=== PATIENT | female | born 1945 | race Caucasian/White ===

== ENCOUNTER 2021-12-29 13:01 | Outpatient (CLI) | payer MEDICARE, MEDICAID | END 2021-12-29 13:02 | disposition home or self-care (01) | LOC: BICRAD 13:01 | PROVIDERS: ATTEND Family Medicine | DX: M41.34 Thoracogenic scoliosis, thoracic region (principal); M47.812 Spondylosis without myelopathy or radiculopathy, cervical region; M47.814 Spondylosis without myelopathy or radiculopathy, thoracic region | CPT/HCPCS: 72040; 72072 ==

== ENCOUNTER 2022-03-02 13:36 | Emergency (ER) | payer MEDICARE, MEDICAID | END 2022-03-02 14:38 | disposition home or self-care (01) | LOC: ERS 13:36 | DX: R21 Rash and other nonspecific skin eruption (principal) | CPT/HCPCS: 99282 ==

== ENCOUNTER 2022-03-27 21:00 | Inpatient (IN) | payer OTHER ==
[2022-03-27 22:22] LABS: #Basophils 0.1 thou/uL (0.0-0.2); #Eosinphils 0.1 thou/uL (0.0-0.7); #Lymphocytes 2.3 thou/uL (1.20-3.40); #Monocytes 0.6 thou/uL (0.11-0.59); #Neutrophils 3.8 thou/uL (1.40-6.50); %Basophils 1.2 % (0.0-1.0); %Eosinophils 1.1 % (0.0-10.0); %Lymphocytes 33.3 % (21.0-51.0); %Monocytes 8.7 % (0.0-10.0); %Neutrophils 55.7 % (42.0-75.0); Hemoglobin 10.9 g/dL (12.0-16.0); Mean Corpuscular HGB CONC 31.2 g/dL (32.0-36.0); Mean Corpuscular Hemoglobin 26.9 pg (27.0-31.0); Mean Corpuscular Volume 86.3 fL (78.0-98.0); Mean Platelet Volume 9.5 fL (7.4-10.4); Platelet Count 248 thou/uL (130-400); RBC Distribution Width 13.4 % (11.5-14.5); Red Blood Cell (RBC) Count 4.06 mill/uL (4.20-5.40); White Blood Cell (WBC) Count 6.8 thou/uL (4.8-10.8)
[2022-03-27 22:53] LABS: ALT (SGPT) 66 U/L (8-55); AST (SGOT) 73 U/L (5-34); Albumin 3.3 g/dL (3.4-4.8); Alkaline Phosphatase 173 U/L (40-110); Anion Gap 14 mmol/L (10-20); BUN (Urea Nitrogen) 15 mg/dL (9.8-20.1); Bilirubin, Total 0.3 mg/dL (0.2-1.2); Calc. Creatinine Clearance 0 mL/min (70-130); Calcium 8.4 mg/dL (7.8-10.44); Carbon Dioxide 26 mmol/L (23-31); Chloride 104 mmol/L (98-107); Estimated GFR 57; Globulin 3.1 g/dL (2.4-3.5); Glucose 173 mg/dL (83-110); Potassium 4.6 mmol/L (3.5-5.1); Protein, Total 6.4 g/dL (5.8-8.1); Sodium 139 mmol/L (136-145)
[2022-03-27 23:15] LABS: CKMB 3.5 ng/mL (0-6.6)
[2022-03-27] MEDS ORDERED: Nitroglycerin 2% Ointment 1 INCH/1 GM Packet ONE (23:25)
[2022-03-27] MEDS ORDERED: Furosemide 20 MG/2 ML VIAL ONE (23:25)
[2022-03-27] MEDS ORDERED: Furosemide 40 MG/4 ML VIAL ONE (23:25)
[2022-03-27] MEDS ORDERED: Aspirin Chewable 81 MG TAB ONE (23:25)
[2022-03-27] MEDS ORDERED: Dextrose 50% Abboject 50 ML SYRINGE SLOW IVP PRN (23:51)
[2022-03-27] MEDS ORDERED: Acetaminophen 325 MG TAB PO PRN (23:51)
[2022-03-27] MEDS ORDERED: Dextrose 5% in Water 1,000 ML IV PRN (23:51)
[2022-03-28] MEDS ORDERED: Melatonin 3 MG TAB PO PRN (00:24)
[2022-03-28] MEDS ORDERED: Docusate Sodium 100 MG/10 ML UDCUP PO PRN (00:25)
[2022-03-28] MEDS ORDERED: guaiFENesin ER 600 MG TAB PO PRN (00:32)
[2022-03-28 00:36] LABS: Iron 25 ug/dL (50-170); Iron Binding Capacity, Total 354 mcg/dL (265-497)
[2022-03-28 01:04] LABS: SARS-CoV-2 NAA Rapid Test Not Detected (NotDetected)
[2022-03-28 04:15] LABS: #Basophils 0.1 thou/uL (0.0-0.2); #Eosinphils 0.1 thou/uL (0.0-0.7); #Lymphocytes 2.5 thou/uL (1.20-3.40); #Monocytes 0.7 thou/uL (0.11-0.59); #Neutrophils 3.5 thou/uL (1.40-6.50); %Basophils 0.9 % (0.0-1.0); %Lymphocytes 36.7 % (21.0-51.0); %Neutrophils 51.3 % (42.0-75.0); Hemoglobin 11.4 g/dL (12.0-16.0); Mean Corpuscular HGB CONC 32.6 g/dL (32.0-36.0); Mean Corpuscular Hemoglobin 28.1 pg (27.0-31.0); Mean Corpuscular Volume 86.2 fL (78.0-98.0); Mean Platelet Volume 9.5 fL (7.4-10.4); Platelet Count 250 thou/uL (130-400); RBC Distribution Width 13.6 % (11.5-14.5); Red Blood Cell (RBC) Count 4.08 mill/uL (4.20-5.40); White Blood Cell (WBC) Count 6.8 thou/uL (4.8-10.8)
[2022-03-28 04:43] LABS: ALT (SGPT) 63 U/L (8-55); AST (SGOT) 55 U/L (5-34); Albumin 3.3 g/dL (3.4-4.8); Alkaline Phosphatase 164 U/L (40-110); Anion Gap 14 mmol/L (10-20); BUN (Urea Nitrogen) 15 mg/dL (9.8-20.1); Bilirubin, Total 0.2 mg/dL (0.2-1.2); Calc. Creatinine Clearance 0 mL/min (70-130); Calcium 8.7 mg/dL (7.8-10.44); Carbon Dioxide 27 mmol/L (23-31); Chloride 102 mmol/L (98-107); Estimated GFR 61; Globulin 3.2 g/dL (2.4-3.5); Glucose 161 mg/dL (83-110); Potassium 3.9 mmol/L (3.5-5.1); Protein, Total 6.5 g/dL (5.8-8.1); Sodium 139 mmol/L (136-145)
[2022-03-28 04:47] LABS: Troponin I 0.074 ng/mL (< 0.028)
[2022-03-28] MEDS ORDERED: Insulin Glargine 30 UNITS/0.3 ML VIAL SC SCH ×2 (09:00→21:00)
[2022-03-28] MEDS: metFORMIN 500 MG TAB PO SCH ×2 (09:37→17:52)
[2022-03-28] MEDS: Iron Polysaccharides Complex 150 MG CAP PO SCH (09:37)
[2022-03-28] MEDS ORDERED: Enoxaparin Sodium 40 MG/0.4 ML SYRINGE ONE (09:50)
[2022-03-28] MEDS ORDERED: Aspirin 81 mg Enteric Coated Tablet ONE (09:50)
[2022-03-28 10:17] LABS: Hemoglobin A1c 10.8 % (4.0-6.0)
[2022-03-28] MEDS: Losartan 25 MG TAB PO SCH (10:48)
[2022-03-28] MEDS: Enoxaparin Sodium 40 MG/0.4 ML SYRINGE SC SCH (10:48)
[2022-03-28] MEDS: Loratadine 10 MG TAB PO SCH (10:48)
[2022-03-28] MEDS: Aspirin 81 mg Enteric Coated Tablet PO SCH (10:48)
[2022-03-28] MEDS: Multivitamin W/ Minerals 1 TAB PO SCH (10:48)
[2022-03-28 14:31] VITALS: BMI 20.8
[2022-03-28] MEDS: HumaLOG 300 UNITS/3 ML VIAL SC PRN (17:52)
[2022-03-28] MEDS: Levothyroxine Sodium 25 MCG TAB PO SCH (20:07)
[2022-03-28] MEDS ORDERED: Potassium Chloride 20 MEQ TAB PO SCH (20:30)
[2022-03-28] MEDS: Atorvastatin Calcium 40 MG TAB PO SCH (21:46)
[2022-03-29 05:03] LABS: Anion Gap 13 mmol/L (10-20); BUN (Urea Nitrogen) 16 mg/dL (9.8-20.1); Calc. Creatinine Clearance 40 mL/min (70-130); Calcium 8.5 mg/dL (7.8-10.44); Carbon Dioxide 27 mmol/L (23-31); Chloride 104 mmol/L (98-107); Estimated GFR 62; Glucose 92 mg/dL (83-110); Magnesium 1.6 mg/dL (1.6-2.6); Potassium 4.1 mmol/L (3.5-5.1); Sodium 140 mmol/L (136-145)
[2022-03-29] MEDS: Furosemide 40 MG/4 ML VIAL SLOW IVP SCH ×2 (06:13→13:46)
[2022-03-29] MEDS: Levothyroxine Sodium 25 MCG TAB PO SCH (06:13)
[2022-03-29] MEDS ORDERED: Insulin Glargine 30 UNITS/0.3 ML VIAL SC SCH ×2 (09:00→21:30)
[2022-03-29] MEDS ORDERED: Furosemide 20 MG/2 ML VIAL SLOW IVP SCH (09:00)
[2022-03-29] MEDS: Iron Polysaccharides Complex 150 MG CAP PO SCH (09:32)
[2022-03-29] MEDS: Empagliflozin 10 MG TAB PO SCH (09:33)
[2022-03-29] MEDS: Loratadine 10 MG TAB PO SCH (09:33)
[2022-03-29] MEDS: Multivitamin W/ Minerals 1 TAB PO SCH (09:33)
[2022-03-29] MEDS: Aspirin 81 mg Enteric Coated Tablet PO SCH (09:33)
[2022-03-29] MEDS: Enoxaparin Sodium 40 MG/0.4 ML SYRINGE SC SCH (09:33)
[2022-03-29] MEDS: Losartan 25 MG TAB PO SCH (09:33)
[2022-03-29] MEDS: HumaLOG 300 UNITS/3 ML VIAL SC PRN ×2 (11:38→21:59)
[2022-03-29] MEDS ORDERED: Magnesium 2 GM/50 ML(in water) 2 GM in Premix Bag 1 BAG IVPB SCH (18:00)
[2022-03-29] MEDS: Atorvastatin Calcium 40 MG TAB PO SCH (21:59)
[2022-03-30] MEDS: Furosemide 40 MG/4 ML VIAL SLOW IVP SCH ×5 (06:01→21:32)
[2022-03-30] MEDS: Levothyroxine Sodium 25 MCG TAB PO SCH (06:01)
[2022-03-30] MEDS: HumaLOG 300 UNITS/3 ML VIAL SC PRN ×3 (06:02→21:35)
[2022-03-30 08:00] LABS: ALT (SGPT) 36 U/L (8-55); AST (SGOT) 24 U/L (5-34); Albumin 3.3 g/dL (3.4-4.8); Alkaline Phosphatase 142 U/L (40-110); Anion Gap 16 mmol/L (10-20); BUN (Urea Nitrogen) 21 mg/dL (9.8-20.1); Bilirubin, Total 0.2 mg/dL (0.2-1.2); Calc. Creatinine Clearance 33 mL/min (70-130); Calcium 9.3 mg/dL (7.8-10.44); Carbon Dioxide 28 mmol/L (23-31); Chloride 99 mmol/L (98-107); Estimated GFR 47; Globulin 3.3 g/dL (2.4-3.5); Glucose 157 mg/dL (83-110); Magnesium 2.4 mg/dL (1.6-2.6); Potassium 3.6 mmol/L (3.5-5.1); Protein, Total 6.6 g/dL (5.8-8.1); Sodium 139 mmol/L (136-145)
[2022-03-30] MEDS ORDERED: Insulin Glargine 30 UNITS/0.3 ML VIAL SC SCH ×2 (09:00)
[2022-03-30] MEDS: Enoxaparin Sodium 40 MG/0.4 ML SYRINGE SC SCH (09:23)
[2022-03-30] MEDS: Iron Polysaccharides Complex 150 MG CAP PO SCH (09:23)
[2022-03-30] MEDS: Losartan 25 MG TAB PO SCH (09:23)
[2022-03-30] MEDS: Aspirin 81 mg Enteric Coated Tablet PO SCH (09:23)
[2022-03-30] MEDS: Empagliflozin 10 MG TAB PO SCH (09:23)
[2022-03-30] MEDS: Multivitamin W/ Minerals 1 TAB PO SCH (09:23)
[2022-03-30] MEDS: Loratadine 10 MG TAB PO SCH (09:23)
[2022-03-30] MEDS ORDERED: Communication Order-Pharmacy FS PRN (10:15)
[2022-03-30] MEDS ORDERED: Potassium Chloride 20 MEQ TAB PO SCH (12:00)
[2022-03-30] MEDS: Atorvastatin Calcium 40 MG TAB PO SCH (21:27)
[2022-03-31 04:51] LABS: ALT (SGPT) 34 U/L (8-55); AST (SGOT) 24 U/L (5-34); Albumin 3.6 g/dL (3.4-4.8); Alkaline Phosphatase 152 U/L (40-110); Anion Gap 15 mmol/L (10-20); BUN (Urea Nitrogen) 24 mg/dL (9.8-20.1); Bilirubin, Total Less than 0.2 mg/dL (0.2-1.2); Calc. Creatinine Clearance 29 mL/min (70-130); Calcium 9.5 mg/dL (7.8-10.44); Carbon Dioxide 33 mmol/L (23-31); Chloride 98 mmol/L (98-107); Estimated GFR 40; Globulin 3.6 g/dL (2.4-3.5); Glucose 177 mg/dL (83-110); Magnesium 2.2 mg/dL (1.6-2.6); Potassium 4.1 mmol/L (3.5-5.1); Protein, Total 7.2 g/dL (5.8-8.1); Sodium 142 mmol/L (136-145)
[2022-03-31] MEDS: Levothyroxine Sodium 25 MCG TAB PO SCH (05:48)
[2022-03-31] MEDS: Aspirin 81 mg Enteric Coated Tablet PO SCH (05:48)
[2022-03-31] MEDS: Losartan 25 MG TAB PO SCH (05:48)
[2022-03-31] MEDS: Loratadine 10 MG TAB PO SCH (05:49)
[2022-03-31] MEDS ORDERED: Sodium Chloride 0.9% 1,000 ML IV SCH (06:00)
[2022-03-31] MEDS ORDERED: Lidocaine 1% PF 5 ML VIAL ONE (06:21)
[2022-03-31] MEDS ORDERED: Lidocaine 1% MPF 2 ML VIAL ONE ×2 (06:36→06:37)
[2022-03-31] MEDS ORDERED: Midazolam HCl 2 mg/2 ml Vial ONE (07:25)
[2022-03-31] MEDS ORDERED: Fentanyl 100 MCG/2 ML VIAL ONE (07:25)
[2022-03-31] MEDS ORDERED: Iopamidol 370 76% 100 ML VIAL ONE (08:29)
[2022-03-31] MEDS ORDERED: Nitroglycerin 0.4 MG TAB (25 Tab Bottle) SL PRN (08:34)
[2022-03-31] MEDS ORDERED: Acetaminophen/Codeine 30-300mg Tablet PO PRN (08:34)
[2022-03-31] MEDS ORDERED: Sodium Chloride 0.9% 200 ML IV PRN (08:34)
[2022-03-31] MEDS ORDERED: Insulin Glargine 30 UNITS/0.3 ML VIAL SC SCH ×2 (09:00)
[2022-03-31] MEDS ORDERED: Lantus 1000 UNITS/10 ML VIAL SC SCH (09:00)
[2022-03-31] MEDS: Empagliflozin 10 MG TAB PO SCH (10:37)
[2022-03-31] MEDS: Multivitamin W/ Minerals 1 TAB PO SCH (10:38)
[2022-03-31] MEDS: Iron Polysaccharides Complex 150 MG CAP PO SCH (10:38)
[2022-03-31] MEDS ORDERED: Amiodarone 450 MG in Dextrose 5% in Water 250 ML IVPB SCH (11:30)
[2022-03-31] MEDS ORDERED: Metoprolol Tartrate 5 MG/5 ML VIAL IVP SCH ×2 (11:30)
[2022-03-31] MEDS: Amiodarone 200 MG TAB PO SCH ×2 (13:18→20:52)
[2022-03-31] MEDS: Carvedilol 3.125 MG TAB PO SCH (17:13)
[2022-03-31] MEDS: HumaLOG 300 UNITS/3 ML VIAL SC PRN ×2 (17:14→20:53)
[2022-03-31] MEDS: Atorvastatin Calcium 40 MG TAB PO SCH (20:51)
[2022-04-01 06:02] LABS: ALT (SGPT) 24 U/L (8-55); AST (SGOT) 19 U/L (5-34); Albumin 3.3 g/dL (3.4-4.8); Alkaline Phosphatase 116 U/L (40-110); Anion Gap 11 mmol/L (10-20); BUN (Urea Nitrogen) 23 mg/dL (9.8-20.1); Bilirubin, Total 0.2 mg/dL (0.2-1.2); Calc. Creatinine Clearance 36 mL/min (70-130); Calcium 8.9 mg/dL (7.8-10.44); Carbon Dioxide 32 mmol/L (23-31); Chloride 102 mmol/L (98-107); Estimated GFR 53; Glucose 94 mg/dL (83-110); Potassium 3.7 mmol/L (3.5-5.1); Protein, Total 6.3 g/dL (5.8-8.1); Sodium 141 mmol/L (136-145)
[2022-04-01] MEDS: Amiodarone 200 MG TAB PO SCH ×3 (06:14→21:25)
[2022-04-01] MEDS: Levothyroxine Sodium 25 MCG TAB PO SCH (06:14)
[2022-04-01] MEDS ORDERED: Insulin Glargine 30 UNITS/0.3 ML VIAL SC SCH (09:00)
[2022-04-01] MEDS: Losartan 25 MG TAB PO SCH (09:28)
[2022-04-01] MEDS: Multivitamin W/ Minerals 1 TAB PO SCH (09:28)
[2022-04-01] MEDS: Carvedilol 3.125 MG TAB PO SCH ×2 (09:28→16:30)
[2022-04-01] MEDS: Aspirin 81 mg Enteric Coated Tablet PO SCH (09:28)
[2022-04-01] MEDS: Empagliflozin 10 MG TAB PO SCH (09:28)
[2022-04-01] MEDS: Insulin Glargine 30 UNITS/0.3 ML VIAL SC SCH (09:29)
[2022-04-01] MEDS: Enoxaparin Sodium 40 MG/0.4 ML SYRINGE SC SCH (09:29)
[2022-04-01] MEDS: Furosemide 20 MG TAB PO SCH (09:30)
[2022-04-01] MEDS: Iron Polysaccharides Complex 150 MG CAP PO SCH (09:30)
[2022-04-01] MEDS ORDERED: Iron, Sodium Ferric Gluconate 250 MG in Sodium Chloride 0.9% 250 ML 250 ML IVPB SCH (14:37)
[2022-04-01] MEDS: Atorvastatin Calcium 40 MG TAB PO SCH (21:26)
[2022-04-02 04:46] LABS: ALT (SGPT) 23 U/L (8-55); AST (SGOT) 22 U/L (5-34); Albumin 3.2 g/dL (3.4-4.8); Alkaline Phosphatase 111 U/L (40-110); Anion Gap 14 mmol/L (10-20); BUN (Urea Nitrogen) 24 mg/dL (9.8-20.1); Bilirubin, Total 0.3 mg/dL (0.2-1.2); Calc. Creatinine Clearance 37 mL/min (70-130); Calcium 8.6 mg/dL (7.8-10.44); Carbon Dioxide 29 mmol/L (23-31); Chloride 101 mmol/L (98-107); Estimated GFR 53; Glucose 100 mg/dL (83-110); Magnesium 1.9 mg/dL (1.6-2.6); Potassium 3.8 mmol/L (3.5-5.1); Protein, Total 6.2 g/dL (5.8-8.1); Sodium 140 mmol/L (136-145)
[2022-04-02] MEDS: Levothyroxine Sodium 25 MCG TAB PO SCH (06:08)
[2022-04-02] MEDS: Amiodarone 200 MG TAB PO SCH (06:08)
[2022-04-02] MEDS ORDERED: Loratadine 10 MG TAB PO SCH ×2 (07:15)
[2022-04-02] MEDS ORDERED: metFORMIN 500 MG TAB PO SCH (08:00)
[2022-04-02] MEDS: Enoxaparin Sodium 40 MG/0.4 ML SYRINGE SC SCH (08:44)
[2022-04-02] MEDS: Iron Polysaccharides Complex 150 MG CAP PO SCH (08:44)
[2022-04-02] MEDS: Carvedilol 3.125 MG TAB PO SCH (08:44)
[2022-04-02] MEDS: Empagliflozin 10 MG TAB PO SCH (08:45)
[2022-04-02] MEDS: Furosemide 20 MG TAB PO SCH (08:46)
[2022-04-02] MEDS: Aspirin 81 mg Enteric Coated Tablet PO SCH (08:46)
[2022-04-02] MEDS: Losartan 25 MG TAB PO SCH (08:46)
[2022-04-02] MEDS: Multivitamin W/ Minerals 1 TAB PO SCH (08:46)
[2022-04-02] MEDS: Insulin Glargine 30 UNITS/0.3 ML VIAL SC SCH (08:47)
[2022-04-02 12:25] VITALS: BP 133/68; TEMP 98.1
[2022-04-02] MEDS ORDERED: Amiodarone 200 MG TAB PO SCH (21:00)
== END 2022-04-02 14:22 | disposition home or self-care (01) | DRG 286 ==
LOC: ERS 21:00 → ERHOLD 23:23 → 2NO 23:55
PROVIDERS: ADMIT Student in an Organized Health Care Education/Training Program; ATTEND Student in an Organized Health Care Education/Training Program
PROC: B2111ZZ Fluoroscopy of Multiple Coronary Arteries using Low Osmolar Contrast (ICD-10-PCS; principal; 2022-03-31)
PROC: B2151ZZ Fluoroscopy of Left Heart using Low Osmolar Contrast (ICD-10-PCS; 2022-03-31)
DX: I11.0 Hypertensive heart disease with heart failure (principal); J96.01 Acute respiratory failure with hypoxia; I50.23 Acute on chronic systolic (congestive) heart failure; I24.8 Other forms of acute ischemic heart disease; N17.9 Acute kidney failure, unspecified; I48.92 Unspecified atrial flutter; E03.9 Hypothyroidism, unspecified; F41.9 Anxiety disorder, unspecified; E11.65 Type 2 diabetes mellitus with hyperglycemia; R32 Unspecified urinary incontinence; E55.9 Vitamin D deficiency, unspecified; E83.42 Hypomagnesemia; E87.6 Hypokalemia; I25.10 Atherosclerotic heart disease of native coronary artery without angina pectoris; D50.9 Iron deficiency anemia, unspecified; I48.0 Paroxysmal atrial fibrillation; Z20.822 Contact with and (suspected) exposure to COVID-19; Z79.4 Long term (current) use of insulin
CPT/HCPCS: 36415; 36416; 71045; 80048; 80053; 82553; 82728; 83036; 83540; 83550; 83735; 83880; 84443; 84484; 85025; 93005; 93306; 93458; 93798; 94760; 96374; C1769; J1650; J1815; J1940; J2250; J2916; J3010; J3475; J3490; J7050; Q9967; U0002

== ENCOUNTER 2022-07-02 18:39 | Emergency (ER) | payer OTHER ==
[2022-07-02] MEDS ORDERED: Boostrix 0.5 ML (Tdap) VIAL (>/=7 yrs of age) ONE (19:27)
== END 2022-07-02 20:40 | disposition home or self-care (01) ==
LOC: ERS 18:39
DX: S00.81XA Abrasion of other part of head, initial encounter (principal); I10 Essential (primary) hypertension; E03.9 Hypothyroidism, unspecified; E11.9 Type 2 diabetes mellitus without complications; W01.0XXA Fall on same level from slipping, tripping and stumbling without subsequent striking against object, initial encounter; Z79.4 Long term (current) use of insulin
CPT/HCPCS: 70450; 70486; 72125; 72170; 90471; 90715

== ENCOUNTER 2022-07-27 20:47 | Emergency (ER) | payer OTHER ==
[2022-07-27 21:39] LABS: #Lymphocytes 1.9 thou/uL (1.20-3.40); #Monocytes 0.7 thou/uL (0.11-0.59); #Neutrophils 4.8 thou/uL (1.40-6.50); %Basophils 0.3 % (0.0-1.0); %Eosinophils 0.4 % (0.0-10.0); %Lymphocytes 25.3 % (21.0-51.0); %Monocytes 9.4 % (0.0-10.0); %Neutrophils 64.5 % (42.0-75.0); Hemoglobin 13.1 g/dL (12.0-16.0); Mean Corpuscular HGB CONC 31.7 g/dL (32.0-36.0); Mean Corpuscular Hemoglobin 28.8 pg (27.0-31.0); Mean Corpuscular Volume 90.7 fl (78.0-98.0); Mean Platelet Volume 10.6 fL (7.4-10.4); Platelet Count 185 10x3/uL (130-400); RBC Distribution Width 16.9 % (11.5-14.5); Red Blood Cell (RBC) Count 4.55 mill/uL (4.20-5.40); White Blood Cell (WBC) Count 7.4 10x3/uL (4.8-10.8)
[2022-07-27 21:58] LABS: ALT (SGPT) 67 U/L (8-55); AST (SGOT) 58 U/L (5-34); Albumin 3.9 g/dL (3.4-4.8); Alkaline Phosphatase 103 U/L (40-110); Anion Gap 17 mmol/L (10-20); BUN (Urea Nitrogen) 28 mg/dL (9.8-20.1); Bilirubin, Total 0.3 mg/dL (0.2-1.2); Calc. Creatinine Clearance 0 mL/min (70-130); Calcium 9.2 mg/dL (7.8-10.44); Carbon Dioxide 24 mmol/L (23-31); Chloride 103 mmol/L (98-107); Estimated GFR 47; Globulin 3.3 g/dL (2.4-3.5); Glucose 186 mg/dL (83-110); Potassium 4.7 mmol/L (3.5-5.1); Protein, Total 7.2 g/dL (5.8-8.1); Sodium 139 mmol/L (136-145)
[2022-07-28 00:33] LABS: Bilirubin Negative (Negative); Blood, Urine Negative (Negative); Clarity Clear (Clear); Glucose, Urine (Dipstick) Greater than 1000 mg/dL (Negative); Ketone, Urine Negative (Negative); Leukocyte Negative Leu/uL (Negative); Nitrite Negative (Negative); Protein, Urine (Dipstick) Negative (Neg-Trace); Urobilinogen Normal mg/dL (Less than 2)
== END 2022-07-28 00:53 | disposition home or self-care (01) ==
LOC: ERS 20:47
DX: I11.0 Hypertensive heart disease with heart failure (principal); I50.9 Heart failure, unspecified; E11.9 Type 2 diabetes mellitus without complications; E03.9 Hypothyroidism, unspecified; Z79.4 Long term (current) use of insulin; Z79.899 Other long term (current) drug therapy
CPT/HCPCS: 36415; 71045; 80053; 81003; 83880; 84484; 85025; 93005

== ENCOUNTER 2022-07-31 14:46 | Inpatient (IN) | payer OTHER ==
[~2022-07-31 14:46] MED LIST: Iopamidol-370 76% 500 ML 1 ML ONE
[2022-07-31 15:38] LABS: #Lymphocytes 1.5 thou/uL (1.20-3.40); #Monocytes 0.8 thou/uL (0.11-0.59); #Neutrophils 6.5 thou/uL (1.40-6.50); %Basophils 0.1 % (0.0-1.0); %Eosinophils 0.2 % (0.0-10.0); %Lymphocytes 17.3 % (21.0-51.0); %Monocytes 9.5 % (0.0-10.0); %Neutrophils 72.9 % (42.0-75.0); Hemoglobin 13.5 g/dL (12.0-16.0); Mean Corpuscular HGB CONC 31.5 g/dL (32.0-36.0); Mean Corpuscular Hemoglobin 28.6 pg (27.0-31.0); Mean Corpuscular Volume 90.9 fl (78.0-98.0); Mean Platelet Volume 10.8 fL (7.4-10.4); Platelet Count 163 10x3/uL (130-400); RBC Distribution Width 16.6 % (11.5-14.5); White Blood Cell (WBC) Count 8.9 10x3/uL (4.8-10.8)
[2022-07-31 15:58] LABS: ALT (SGPT) 888 U/L (8-55); AST (SGOT) 1746 U/L (5-34); Albumin 4.1 g/dL (3.4-4.8); Alkaline Phosphatase 100 U/L (40-110); Anion Gap 17 mmol/L (10-20); BUN (Urea Nitrogen) 29 mg/dL (9.8-20.1); Bilirubin, Total 0.5 mg/dL (0.2-1.2); Calc. Creatinine Clearance 0 mL/min (70-130); Calcium 8.7 mg/dL (7.8-10.44); Carbon Dioxide 27 mmol/L (23-31); Chloride 97 mmol/L (98-107); Estimated GFR 41; Globulin 3.1 g/dL (2.4-3.5); Glucose 118 mg/dL (83-110); Potassium 3.6 mmol/L (3.5-5.1); Protein, Total 7.2 g/dL (5.8-8.1); Sodium 137 mmol/L (136-145)
[2022-07-31 16:19] LABS: CKMB 1.3 ng/mL (0-6.6)
[2022-07-31 16:48] LABS: Bilirubin Negative (Negative); Blood, Urine Negative (Negative); Clarity Clear (Clear); Glucose, Urine (Dipstick) Greater than 1000 mg/dL (Negative); Ketone, Urine 10 mg/dL (Negative); Leukocyte Negative Leu/uL (Negative); Nitrite Negative (Negative); Protein, Urine (Dipstick) 10 mg/dL (Neg-Trace); Specific Gravity, Urine 1.024 (1.002-1.036); Urobilinogen Normal mg/dL (Less than 2)
[2022-07-31] MEDS ORDERED: Aspirin Chewable 81 MG TAB ONE (16:50)
[2022-07-31 19:50] LABS: Troponin I 0.046 ng/mL (< 0.028)
[2022-07-31] MEDS ORDERED: Calcium Carbonate 500 MG ChewTAB PO PRN (19:52)
[2022-07-31] MEDS ORDERED: Dextrose 5% in Water 1,000 ML IV PRN (20:00)
[2022-07-31] MEDS ORDERED: Dextrose 50% Abboject 50 ML SYRINGE SLOW IVP PRN (20:00)
[2022-07-31] MEDS ORDERED: Diclofenac 1% 100 GM GEL TP PRN (20:15)
[2022-07-31] MEDS ORDERED: Docusate 100 MG CAP PO PRN (20:23)
[2022-07-31] MEDS ORDERED: Insulin Glargine 30 UNITS/0.3 ML VIAL SC SCH (21:00)
[2022-07-31] MEDS: Melatonin 3 MG TAB PO SCH (22:44)
[2022-07-31] MEDS: metFORMIN 500 MG TAB PO SCH (22:44)
[2022-07-31 22:47] LABS: PTT 35.2 sec (22.9-36.1); Prothrombin Time 13.7 sec (12.0-14.7)
[2022-07-31 23:19] LABS: HBCM Index 0.13 S/CO (0-0.79); HBSAg Index 0.29 S/CO (0-0.99); Hep A IgM AB Non-Reactive (NonReactive); Hep A IgM S/CO 0.14 S/CO (0-0.79); Hep B Surf Ag Non-Reactive S/CO (NonReactive); Hep C IgG Ab Non-Reactive (NonReactive); Hep C Index 0.04 S/CO (0-0.79); Hepatitis B Core IgM Abs Non-Reactive (NonReactive)
[2022-08-01 00:19] LABS: Creatinine, Urine 59.51 mg/dL (47-110)
[2022-08-01 01:02] LABS: Hemoglobin A1c 9.7 % (4.0-6.0)
[2022-08-01 01:14] LABS: ALT (SGPT) 1003 U/L (8-55); AST (SGOT) 1829 U/L (5-34); Albumin 3.7 g/dL (3.4-4.8); Alkaline Phosphatase 100 U/L (40-110); Bilirubin, Direct 0.2 mg/dL (0.1-0.3); Bilirubin, Total 0.3 mg/dL (0.2-1.2); Protein, Total 7.1 g/dL (5.8-8.1)
[2022-08-01 05:11] LABS: #Lymphocytes 1.1 thou/uL (1.20-3.40); #Monocytes 0.6 thou/uL (0.11-0.59); #Neutrophils 8.8 thou/uL (1.40-6.50); %Basophils 0.1 % (0.0-1.0); %Eosinophils 0.1 % (0.0-10.0); %Lymphocytes 10.5 % (21.0-51.0); %Monocytes 5.8 % (0.0-10.0); %Neutrophils 83.5 % (42.0-75.0); Hemoglobin 13.9 g/dL (12.0-16.0); Mean Corpuscular HGB CONC 31.5 g/dL (32.0-36.0); Mean Corpuscular Hemoglobin 28.7 pg (27.0-31.0); Mean Corpuscular Volume 91.1 fl (78.0-98.0); Mean Platelet Volume 11.3 fL (7.4-10.4); Platelet Count 157 10x3/uL (130-400); RBC Distribution Width 16.6 % (11.5-14.5); Red Blood Cell (RBC) Count 4.83 mill/uL (4.20-5.40); White Blood Cell (WBC) Count 10.6 10x3/uL (4.8-10.8)
[2022-08-01 05:35] LABS: ALT (SGPT) 1189 U/L (8-55); AST (SGOT) 2196 U/L (5-34); Albumin 3.8 g/dL (3.4-4.8); Alkaline Phosphatase 105 U/L (40-110); Anion Gap 14 mmol/L (10-20); BUN (Urea Nitrogen) 26 mg/dL (9.8-20.1); Bilirubin, Total 0.4 mg/dL (0.2-1.2); Calc. Creatinine Clearance 30 mL/min (70-130); Calcium 8.7 mg/dL (7.8-10.44); Carbon Dioxide 29 mmol/L (23-31); Chloride 99 mmol/L (98-107); Estimated GFR 48; Globulin 3.5 g/dL (2.4-3.5); Glucose 103 mg/dL (83-110); Potassium 3.4 mmol/L (3.5-5.1); Protein, Total 7.3 g/dL (5.8-8.1); Sodium 139 mmol/L (136-145)
[2022-08-01] MEDS: Benzonatate 100 MG CAP PO PRN ×3 (05:49→23:17)
[2022-08-01] MEDS: Levothyroxine Sodium 50 MCG TAB PO SCH (05:49)
[2022-08-01] MEDS ORDERED: Insulin Glargine 30 UNITS/0.3 ML VIAL SC SCH (09:00)
[2022-08-01] MEDS ORDERED: Furosemide 20 MG TAB PO SCH (09:00)
[2022-08-01] MEDS: Losartan 25 MG TAB PO SCH (09:47)
[2022-08-01] MEDS: Multivit, Therapeutic 1 TAB PO SCH (09:47)
[2022-08-01] MEDS: Enoxaparin Sodium 30 MG/0.3 ML SYRINGE SC SCH (09:47)
[2022-08-01] MEDS: metFORMIN 500 MG TAB PO SCH ×2 (09:47→23:17)
[2022-08-01] MEDS: Aspirin Chewable 81 MG TAB PO SCH (09:47)
[2022-08-01] MEDS: Sertraline 100 MG TAB PO SCH (09:47)
[2022-08-01] MEDS: Loratadine 10 MG TAB PO SCH (09:47)
[2022-08-01] MEDS ORDERED: Potassium Chloride 20 MEQ TAB PO SCH (10:00)
[2022-08-01] MEDS: Polyethylene Glycol 3350 17 GM Packet PO SCH (10:34)
[2022-08-01 10:47] LABS: SARS-CoV-2 NAA Rapid Test Not Detected (NotDetected)
[2022-08-01] MEDS ORDERED: Oseltamivir 75 MG CAP PO SCH (12:00)
[2022-08-01] MEDS: Melatonin 3 MG TAB PO SCH (23:16)
[2022-08-02] MEDS: Oseltamivir 6 MG/ML ORAL SUSP PO SCH ×3 (01:56→21:42)
[2022-08-02 04:58] LABS: #Monocytes 0.7 thou/uL (0.11-0.59); #Neutrophils 9.2 thou/uL (1.40-6.50); %Basophils 0.2 % (0.0-1.0); %Lymphocytes 16.6 % (21.0-51.0); %Monocytes 5.8 % (0.0-10.0); %Neutrophils 77.4 % (42.0-75.0); Hemoglobin 12.3 g/dL (12.0-16.0); Mean Corpuscular Hemoglobin 29.2 pg (27.0-31.0); Mean Corpuscular Volume 91.2 fl (78.0-98.0); Mean Platelet Volume 10.9 fL (7.4-10.4); Platelet Count 121 10x3/uL (130-400); RBC Distribution Width 16.6 % (11.5-14.5); White Blood Cell (WBC) Count 11.9 10x3/uL (4.8-10.8)
[2022-08-02 05:03] LABS: INR-International Normal Ratio 1.2; PTT 44.8 sec (22.9-36.1); Prothrombin Time 15.5 sec (12.0-14.7)
[2022-08-02 05:11] LABS: ALT (SGPT) 1807 U/L (8-55); AST (SGOT) 3378 U/L (5-34); Albumin 3.2 g/dL (3.4-4.8); Alkaline Phosphatase 113 U/L (40-110); Anion Gap 15 mmol/L (10-20); BUN (Urea Nitrogen) 31 mg/dL (9.8-20.1); Bilirubin, Total 0.6 mg/dL (0.2-1.2); Calc. Creatinine Clearance 30 mL/min (70-130); Calcium 8.4 mg/dL (7.8-10.44); Carbon Dioxide 25 mmol/L (23-31); Chloride 100 mmol/L (98-107); Estimated GFR 48; Glucose 95 mg/dL (83-110); Potassium 3.4 mmol/L (3.5-5.1); Protein, Total 6.2 g/dL (5.8-8.1); Sodium 137 mmol/L (136-145)
[2022-08-02] MEDS: Levothyroxine Sodium 50 MCG TAB PO SCH (06:31)
[2022-08-02] MEDS: Sertraline 100 MG TAB PO SCH (08:39)
[2022-08-02] MEDS: metFORMIN 500 MG TAB PO SCH ×2 (08:39→21:40)
[2022-08-02] MEDS: Aspirin Chewable 81 MG TAB PO SCH (08:39)
[2022-08-02] MEDS: Loratadine 10 MG TAB PO SCH (08:39)
[2022-08-02] MEDS: Insulin Glargine 30 UNITS/0.3 ML VIAL SC SCH (08:40)
[2022-08-02] MEDS: Losartan 25 MG TAB PO SCH (08:40)
[2022-08-02] MEDS: Enoxaparin Sodium 30 MG/0.3 ML SYRINGE SC SCH (08:40)
[2022-08-02] MEDS: Polyethylene Glycol 3350 17 GM Packet PO SCH (08:41)
[2022-08-02] MEDS: Multivit, Therapeutic 1 TAB PO SCH (08:41)
[2022-08-02] MEDS ORDERED: guaiFENesin 200 MG TAB PO PRN (09:02)
[2022-08-02] MEDS ORDERED: Potassium Chloride 20 MEQ TAB PO SCH (09:15)
[2022-08-02] MEDS ORDERED: Torsemide 10 MG TAB PO SCH (09:15)
[2022-08-02] MEDS ORDERED: Ibuprofen 100 MG/5 ML UDCUP PO SCH (12:00)
[2022-08-02] MEDS ORDERED: Lactated Ringer's 500 ML IV SCH (16:30)
[2022-08-02] MEDS: Benzonatate 100 MG CAP PO PRN (21:39)
[2022-08-02] MEDS: Melatonin 3 MG TAB PO SCH (21:40)
[2022-08-02] MEDS: HumaLOG 300 UNITS/3 ML VIAL SC PRN (21:45)
[2022-08-03 04:50] LABS: INR-International Normal Ratio 1.2; Prothrombin Time 15.3 sec (12.0-14.7)
[2022-08-03 04:51] LABS: PTT 45.3 sec (22.9-36.1)
[2022-08-03 05:07] LABS: #Lymphocytes 1.7 thou/uL (1.20-3.40); #Monocytes 0.5 thou/uL (0.11-0.59); #Neutrophils 8.2 thou/uL (1.40-6.50); %Basophils 0.3 % (0.0-1.0); %Eosinophils 0.1 % (0.0-10.0); %Lymphocytes 15.9 % (21.0-51.0); %Monocytes 4.9 % (0.0-10.0); %Neutrophils 78.8 % (42.0-75.0); Hemoglobin 11.7 g/dL (12.0-16.0); Mean Corpuscular HGB CONC 29.9 g/dL (32.0-36.0); Mean Corpuscular Hemoglobin 27.5 pg (27.0-31.0); Mean Corpuscular Volume 91.8 fl (78.0-98.0); Mean Platelet Volume 12.2 fL (7.4-10.4); Platelet Count 104 10x3/uL (130-400); RBC Distribution Width 16.8 % (11.5-14.5); Red Blood Cell (RBC) Count 4.25 mill/uL (4.20-5.40); White Blood Cell (WBC) Count 10.4 10x3/uL (4.8-10.8)
[2022-08-03] MEDS: Levothyroxine Sodium 50 MCG TAB PO SCH (05:07)
[2022-08-03 05:11] LABS: ALT (SGPT) 1900 U/L (8-55); AST (SGOT) 3197 U/L (5-34); Albumin 3.1 g/dL (3.4-4.8); Alkaline Phosphatase 126 U/L (40-110); Anion Gap 13 mmol/L (10-20); BUN (Urea Nitrogen) 32 mg/dL (9.8-20.1); Calc. Creatinine Clearance 26 mL/min (70-130); Calcium 8.8 mg/dL (7.8-10.44); Carbon Dioxide 30 mmol/L (23-31); Chloride 99 mmol/L (98-107); Estimated GFR 40; Globulin 3.1 g/dL (2.4-3.5); Glucose 132 mg/dL (83-110); Potassium 3.6 mmol/L (3.5-5.1); Protein, Total 6.2 g/dL (5.8-8.1); Sodium 138 mmol/L (136-145)
[2022-08-03] MEDS ORDERED: Torsemide 10 MG TAB PO SCH ×2 (09:00→11:00)
[2022-08-03] MEDS ORDERED: FLU VACC QS2022-23(65YR UP)/PF 240 MCG/0.7 ML SYRINGE IM ONE (09:00)
[2022-08-03] MEDS: Aspirin Chewable 81 MG TAB PO SCH (09:40)
[2022-08-03] MEDS: metFORMIN 500 MG TAB PO SCH (09:40)
[2022-08-03] MEDS: Loratadine 10 MG TAB PO SCH (09:40)
[2022-08-03] MEDS: Multivit, Therapeutic 1 TAB PO SCH (09:40)
[2022-08-03] MEDS: Sertraline 100 MG TAB PO SCH (09:40)
[2022-08-03] MEDS: Insulin Glargine 30 UNITS/0.3 ML VIAL SC SCH (09:41)
[2022-08-03] MEDS: Losartan 25 MG TAB PO SCH (09:41)
[2022-08-03] MEDS: Enoxaparin Sodium 30 MG/0.3 ML SYRINGE SC SCH (09:41)
[2022-08-03] MEDS: Polyethylene Glycol 3350 17 GM Packet PO SCH (09:41)
[2022-08-03] MEDS: Oseltamivir 6 MG/ML ORAL SUSP PO SCH (09:43)
[2022-08-03 13:25] LABS: ANA Symphony (Qualitative) Negative (Negative); ANA Symphony (Quantitative) 0.3 Ratio (< 0.7 Negative); dsDNA IgG Antibody 0.9 IU/mL (<10 Negative)
[2022-08-03] MEDS: HumaLOG 300 UNITS/3 ML VIAL SC PRN (17:08)
[2022-08-03] MEDS: Melatonin 3 MG TAB PO SCH (22:17)
[2022-08-04 04:33] LABS: #Lymphocytes 1.8 thou/uL (1.20-3.40); #Monocytes 0.6 thou/uL (0.11-0.59); #Neutrophils 5.9 thou/uL (1.40-6.50); %Basophils 0.1 % (0.0-1.0); %Eosinophils 0.3 % (0.0-10.0); %Lymphocytes 21.1 % (21.0-51.0); %Monocytes 7.5 % (0.0-10.0); Hemoglobin 12.4 g/dL (12.0-16.0); Mean Corpuscular HGB CONC 30.3 g/dL (32.0-36.0); Mean Corpuscular Hemoglobin 27.8 pg (27.0-31.0); Mean Corpuscular Volume 91.6 fl (78.0-98.0); Mean Platelet Volume 12.6 fL (7.4-10.4); Platelet Count 118 10x3/uL (130-400); RBC Distribution Width 16.8 % (11.5-14.5); Red Blood Cell (RBC) Count 4.45 mill/uL (4.20-5.40); White Blood Cell (WBC) Count 8.3 10x3/uL (4.8-10.8)
[2022-08-04 04:37] LABS: Prothrombin Time 13.5 sec (12.0-14.7)
[2022-08-04 04:39] LABS: PTT 38.2 sec (22.9-36.1)
[2022-08-04 05:00] LABS: ALT (SGPT) 1566 U/L (8-55); AST (SGOT) 2049 U/L (5-34); Albumin 3.2 g/dL (3.4-4.8); Alkaline Phosphatase 252 U/L (40-110); Anion Gap 14 mmol/L (10-20); BUN (Urea Nitrogen) 31 mg/dL (9.8-20.1); Bilirubin, Total 0.8 mg/dL (0.2-1.2); Calc. Creatinine Clearance 32 mL/min (70-130); Calcium 9.2 mg/dL (7.8-10.44); Carbon Dioxide 33 mmol/L (23-31); Chloride 98 mmol/L (98-107); Estimated GFR 52; Globulin 3.3 g/dL (2.4-3.5); Glucose 152 mg/dL (83-110); Potassium 3.8 mmol/L (3.5-5.1); Protein, Total 6.5 g/dL (5.8-8.1); Sodium 141 mmol/L (136-145)
[2022-08-04] MEDS: Levothyroxine Sodium 50 MCG TAB PO SCH (05:44)
[2022-08-04] MEDS: Losartan 25 MG TAB PO SCH (09:22)
[2022-08-04] MEDS: Aspirin Chewable 81 MG TAB PO SCH (09:22)
[2022-08-04] MEDS: Polyethylene Glycol 3350 17 GM Packet PO SCH (09:22)
[2022-08-04] MEDS: Sertraline 100 MG TAB PO SCH (09:23)
[2022-08-04] MEDS: Multivit, Therapeutic 1 TAB PO SCH (09:23)
[2022-08-04] MEDS: Loratadine 10 MG TAB PO SCH (09:23)
[2022-08-04] MEDS: Enoxaparin Sodium 30 MG/0.3 ML SYRINGE SC SCH (09:24)
[2022-08-04] MEDS: Insulin Glargine 30 UNITS/0.3 ML VIAL SC SCH (09:24)
[2022-08-04] MEDS: Torsemide 10 MG TAB PO SCH (09:26)
[2022-08-04] MEDS: Oseltamivir 6 MG/ML ORAL SUSP PO SCH (10:41)
[2022-08-04] MEDS: HumaLOG 300 UNITS/3 ML VIAL SC PRN ×3 (11:49→20:43)
[2022-08-04] MEDS: Melatonin 3 MG TAB PO SCH (20:32)
[2022-08-05 05:12] LABS: #Lymphocytes 1.7 thou/uL (1.20-3.40); #Monocytes 0.6 thou/uL (0.11-0.59); #Neutrophils 4.5 thou/uL (1.40-6.50); %Basophils 0.7 % (0.0-1.0); %Eosinophils 0.5 % (0.0-10.0); %Lymphocytes 24.4 % (21.0-51.0); %Monocytes 8.9 % (0.0-10.0); %Neutrophils 65.5 % (42.0-75.0); Hemoglobin 12.8 g/dL (12.0-16.0); Mean Corpuscular HGB CONC 30.2 g/dL (32.0-36.0); Mean Corpuscular Hemoglobin 27.8 pg (27.0-31.0); Mean Corpuscular Volume 91.8 fl (78.0-98.0); Platelet Count 140 10x3/uL (130-400); RBC Distribution Width 16.6 % (11.5-14.5); White Blood Cell (WBC) Count 6.8 10x3/uL (4.8-10.8)
[2022-08-05 05:21] LABS: INR-International Normal Ratio 0.9; Prothrombin Time 12.8 sec (12.0-14.7)
[2022-08-05 05:22] LABS: PTT 34.6 sec (22.9-36.1)
[2022-08-05 05:31] LABS: ALT (SGPT) 1176 U/L (8-55); AST (SGOT) 1063 U/L (5-34); Albumin 3.4 g/dL (3.4-4.8); Alkaline Phosphatase 243 U/L (40-110); Anion Gap 14 mmol/L (10-20); BUN (Urea Nitrogen) 28 mg/dL (9.8-20.1); Bilirubin, Total 0.7 mg/dL (0.2-1.2); Calc. Creatinine Clearance 39 mL/min (70-130); Calcium 9.2 mg/dL (7.8-10.44); Carbon Dioxide 36 mmol/L (23-31); Chloride 97 mmol/L (98-107); Estimated GFR 66; Globulin 3.4 g/dL (2.4-3.5); Glucose 91 mg/dL (83-110); Potassium 3.4 mmol/L (3.5-5.1); Protein, Total 6.8 g/dL (5.8-8.1); Sodium 144 mmol/L (136-145)
[2022-08-05] MEDS: Levothyroxine Sodium 50 MCG TAB PO SCH (05:53)
[2022-08-05] MEDS: Polyethylene Glycol 3350 17 GM Packet PO SCH (08:46)
[2022-08-05] MEDS: Oseltamivir 6 MG/ML ORAL SUSP PO SCH (08:46)
[2022-08-05] MEDS: Torsemide 10 MG TAB PO SCH (08:47)
[2022-08-05] MEDS: Enoxaparin Sodium 30 MG/0.3 ML SYRINGE SC SCH (08:47)
[2022-08-05] MEDS: Multivit, Therapeutic 1 TAB PO SCH (08:48)
[2022-08-05] MEDS: Sertraline 100 MG TAB PO SCH (08:48)
[2022-08-05] MEDS: Insulin Glargine 30 UNITS/0.3 ML VIAL SC SCH (08:48)
[2022-08-05] MEDS: Loratadine 10 MG TAB PO SCH (08:48)
[2022-08-05] MEDS: Aspirin Chewable 81 MG TAB PO SCH (08:48)
[2022-08-05] MEDS: Losartan 25 MG TAB PO SCH (08:48)
[2022-08-05] MEDS ORDERED: Potassium Chloride 20 MEQ TAB PO SCH (10:30)
[2022-08-05] MEDS ORDERED: Empagliflozin 10 MG TAB PO SCH (10:45)
[2022-08-05] MEDS ORDERED: Losartan 25 MG TAB PO SCH (11:00)
[2022-08-05] MEDS: Benzonatate 100 MG CAP PO PRN (11:29)
[2022-08-05] MEDS: HumaLOG 300 UNITS/3 ML VIAL SC PRN ×2 (11:29→17:45)
[2022-08-05] MEDS: Melatonin 3 MG TAB PO SCH (20:19)
[2022-08-06 04:54] LABS: INR-International Normal Ratio 0.9; Prothrombin Time 12.8 sec (12.0-14.7)
[2022-08-06 04:55] LABS: PTT 31.4 sec (22.9-36.1)
[2022-08-06 05:02] LABS: ALT (SGPT) 810 U/L (8-55); AST (SGOT) 505 U/L (5-34); Albumin 3.2 g/dL (3.4-4.8); Alkaline Phosphatase 281 U/L (40-110); Anion Gap 15 mmol/L (10-20); BUN (Urea Nitrogen) 22 mg/dL (9.8-20.1); Calc. Creatinine Clearance 37 mL/min (70-130); Calcium 9.2 mg/dL (7.8-10.44); Carbon Dioxide 31 mmol/L (23-31); Chloride 98 mmol/L (98-107); Estimated GFR 65; Globulin 3.5 g/dL (2.4-3.5); Glucose 131 mg/dL (83-110); Protein, Total 6.7 g/dL (5.8-8.1); Sodium 140 mmol/L (136-145)
[2022-08-06 05:05] LABS: #Lymphocytes 1.9 thou/uL (1.20-3.40); #Monocytes 0.9 thou/uL (0.11-0.59); #Neutrophils 5.6 thou/uL (1.40-6.50); %Basophils 0.3 % (0.0-1.0); %Eosinophils 0.4 % (0.0-10.0); %Lymphocytes 22.7 % (21.0-51.0); %Monocytes 10.6 % (0.0-10.0); Mean Corpuscular HGB CONC 31.1 g/dL (32.0-36.0); Mean Corpuscular Hemoglobin 28.5 pg (27.0-31.0); Mean Corpuscular Volume 91.7 fl (78.0-98.0); Mean Platelet Volume 11.6 fL (7.4-10.4); Platelet Count 163 10x3/uL (130-400); RBC Distribution Width 16.3 % (11.5-14.5); Red Blood Cell (RBC) Count 4.55 mill/uL (4.20-5.40); White Blood Cell (WBC) Count 8.4 10x3/uL (4.8-10.8)
[2022-08-06 05:24] LABS: Bilirubin, Total 0.9 mg/dL (0.2-1.2)
[2022-08-06] MEDS: Levothyroxine Sodium 50 MCG TAB PO SCH (06:09)
[2022-08-06] MEDS: Losartan 25 MG TAB PO SCH (09:29)
[2022-08-06] MEDS: Sertraline 100 MG TAB PO SCH (09:29)
[2022-08-06] MEDS: Loratadine 10 MG TAB PO SCH (09:30)
[2022-08-06] MEDS: Potassium Chloride 20 MEQ TAB PO SCH (09:30)
[2022-08-06] MEDS: Empagliflozin 10 MG TAB PO SCH (09:30)
[2022-08-06] MEDS: Enoxaparin Sodium 30 MG/0.3 ML SYRINGE SC SCH (09:30)
[2022-08-06] MEDS: Aspirin Chewable 81 MG TAB PO SCH (09:30)
[2022-08-06] MEDS: Multivit, Therapeutic 1 TAB PO SCH (09:31)
[2022-08-06] MEDS: Polyethylene Glycol 3350 17 GM Packet PO SCH (09:31)
[2022-08-06] MEDS: Torsemide 10 MG TAB PO SCH (09:31)
[2022-08-06] MEDS: Insulin Glargine 30 UNITS/0.3 ML VIAL SC SCH (09:32)
[2022-08-06] MEDS: HumaLOG 300 UNITS/3 ML VIAL SC PRN (18:05)
[2022-08-06] MEDS: Melatonin 3 MG TAB PO SCH (20:30)
[2022-08-07] MEDS: Levothyroxine Sodium 50 MCG TAB PO SCH (05:10)
[2022-08-07 05:16] LABS: #Neutrophils 8.3 thou/uL (1.40-6.50); %Basophils 0.3 % (0.0-1.0); %Eosinophils 0.4 % (0.0-10.0); %Lymphocytes 9.9 % (21.0-51.0); %Monocytes 9.2 % (0.0-10.0); %Neutrophils 80.3 % (42.0-75.0); Hemoglobin 13.1 g/dL (12.0-16.0); Mean Corpuscular HGB CONC 32.4 g/dL (32.0-36.0); Mean Corpuscular Hemoglobin 29.5 pg (27.0-31.0); Mean Corpuscular Volume 90.9 fl (78.0-98.0); Mean Platelet Volume 11.7 fL (7.4-10.4); Platelet Count 182 10x3/uL (130-400); RBC Distribution Width 15.8 % (11.5-14.5); Red Blood Cell (RBC) Count 4.44 mill/uL (4.20-5.40); White Blood Cell (WBC) Count 10.3 10x3/uL (4.8-10.8)
[2022-08-07 05:19] LABS: INR-International Normal Ratio 0.9; Prothrombin Time 12.9 sec (12.0-14.7)
[2022-08-07 05:20] LABS: PTT 31.8 sec (22.9-36.1)
[2022-08-07 05:23] LABS: ALT (SGPT) 537 U/L (8-55); AST (SGOT) 241 U/L (5-34); Albumin 3.3 g/dL (3.4-4.8); Alkaline Phosphatase 240 U/L (40-110); Anion Gap 15 mmol/L (10-20); BUN (Urea Nitrogen) 21 mg/dL (9.8-20.1); Bilirubin, Total 0.7 mg/dL (0.2-1.2); Calc. Creatinine Clearance 35 mL/min (70-130); Calcium 8.9 mg/dL (7.8-10.44); Carbon Dioxide 29 mmol/L (23-31); Chloride 97 mmol/L (98-107); Estimated GFR 61; Globulin 3.5 g/dL (2.4-3.5); Glucose 146 mg/dL (83-110); Protein, Total 6.8 g/dL (5.8-8.1); Sodium 137 mmol/L (136-145)
[2022-08-07] MEDS: Multivit, Therapeutic 1 TAB PO SCH (08:48)
[2022-08-07] MEDS: Potassium Chloride 20 MEQ TAB PO SCH (08:48)
[2022-08-07] MEDS: Insulin Glargine 30 UNITS/0.3 ML VIAL SC SCH (08:49)
[2022-08-07] MEDS: Losartan 25 MG TAB PO SCH (08:49)
[2022-08-07] MEDS: Sertraline 100 MG TAB PO SCH (08:49)
[2022-08-07] MEDS: Enoxaparin Sodium 30 MG/0.3 ML SYRINGE SC SCH (08:49)
[2022-08-07] MEDS: Aspirin Chewable 81 MG TAB PO SCH (08:49)
[2022-08-07] MEDS: Torsemide 10 MG TAB PO SCH (08:49)
[2022-08-07] MEDS: Loratadine 10 MG TAB PO SCH (08:49)
[2022-08-07] MEDS: Empagliflozin 10 MG TAB PO SCH (08:49)
[2022-08-07] MEDS: Polyethylene Glycol 3350 17 GM Packet PO SCH (08:50)
[2022-08-07] MEDS: Melatonin 3 MG TAB PO SCH (20:46)
[2022-08-08 05:06] LABS: Hemoglobin 12.5 g/dL (12.0-16.0); Mean Corpuscular HGB CONC 32.5 g/dL (32.0-36.0); Mean Corpuscular Hemoglobin 29.5 pg (27.0-31.0); Mean Platelet Volume 11.6 fL (7.4-10.4); Platelet Count 208 10x3/uL (130-400); RBC Distribution Width 15.7 % (11.5-14.5); Red Blood Cell (RBC) Count 4.23 mill/uL (4.20-5.40); White Blood Cell (WBC) Count 16.4 10x3/uL (4.8-10.8)
[2022-08-08 05:07] LABS: INR-International Normal Ratio 0.9; Prothrombin Time 12.9 sec (12.0-14.7)
[2022-08-08] MEDS: Levothyroxine Sodium 50 MCG TAB PO SCH (05:10)
[2022-08-08 05:11] LABS: PTT 33.5 sec (22.9-36.1)
[2022-08-08 05:22] LABS: ALT (SGPT) 382 U/L (8-55); AST (SGOT) 148 U/L (5-34); Albumin 3.2 g/dL (3.4-4.8); Alkaline Phosphatase 209 U/L (40-110); Anion Gap 15 mmol/L (10-20); BUN (Urea Nitrogen) 20 mg/dL (9.8-20.1); Calc. Creatinine Clearance 32 mL/min (70-130); Carbon Dioxide 30 mmol/L (23-31); Chloride 97 mmol/L (98-107); Estimated GFR 53; Globulin 3.5 g/dL (2.4-3.5); Glucose 92 mg/dL (83-110); Potassium 4.1 mmol/L (3.5-5.1); Protein, Total 6.7 g/dL (5.8-8.1); Sodium 138 mmol/L (136-145)
[2022-08-08 05:38] LABS: Band 6 % (5-11); Lymphocytes 8 % (21-51); MDiff Complete? YES; Metamyelocyte 1 % (0-0); Monocytes 12 % (0-10); Neutrophil 73 % (42-75)
[2022-08-08 06:41] LABS: Bilirubin, Total 0.7 mg/dL (0.2-1.2)
[2022-08-08] MEDS: Multivit, Therapeutic 1 TAB PO SCH (09:23)
[2022-08-08] MEDS: Enoxaparin Sodium 30 MG/0.3 ML SYRINGE SC SCH (09:23)
[2022-08-08] MEDS: Potassium Chloride 20 MEQ TAB PO SCH (09:23)
[2022-08-08] MEDS: Loratadine 10 MG TAB PO SCH (09:24)
[2022-08-08] MEDS: Empagliflozin 10 MG TAB PO SCH (09:24)
[2022-08-08] MEDS: Aspirin Chewable 81 MG TAB PO SCH (09:24)
[2022-08-08] MEDS: Losartan 25 MG TAB PO SCH (09:24)
[2022-08-08] MEDS: Sertraline 100 MG TAB PO SCH (09:24)
[2022-08-08] MEDS: Torsemide 10 MG TAB PO SCH (09:25)
[2022-08-08] MEDS: Insulin Glargine 30 UNITS/0.3 ML VIAL SC SCH (09:25)
[2022-08-08] MEDS: Polyethylene Glycol 3350 17 GM Packet PO SCH (09:25)
[2022-08-08] MEDS: HumaLOG 300 UNITS/3 ML VIAL SC PRN (17:54)
[2022-08-08] MEDS: Melatonin 3 MG TAB PO SCH (22:50)
[2022-08-09] MEDS ORDERED: Ibuprofen 800 MG TAB PO SCH (01:30)
[2022-08-09 05:03] LABS: Hemoglobin 11.1 g/dL (12.0-16.0); Mean Corpuscular HGB CONC 30.9 g/dL (32.0-36.0); Mean Corpuscular Hemoglobin 28.1 pg (27.0-31.0); Mean Corpuscular Volume 91.1 fl (78.0-98.0); Mean Platelet Volume 11.3 fL (7.4-10.4); Platelet Count 259 10x3/uL (130-400); RBC Distribution Width 15.5 % (11.5-14.5); Red Blood Cell (RBC) Count 3.96 mill/uL (4.20-5.40); White Blood Cell (WBC) Count 19.9 10x3/uL (4.8-10.8)
[2022-08-09 05:16] LABS: PTT 32.4 sec (22.9-36.1)
[2022-08-09 05:18] LABS: ALT (SGPT) 259 U/L (8-55); AST (SGOT) 106 U/L (5-34); Alkaline Phosphatase 199 U/L (40-110); Anion Gap 18 mmol/L (10-20); BUN (Urea Nitrogen) 30 mg/dL (9.8-20.1); Bilirubin, Total 0.9 mg/dL (0.2-1.2); Calc. Creatinine Clearance 24 mL/min (70-130); Calcium 8.6 mg/dL (7.8-10.44); Carbon Dioxide 26 mmol/L (23-31); Chloride 95 mmol/L (98-107); Estimated GFR 37; Globulin 3.4 g/dL (2.4-3.5); Glucose 158 mg/dL (83-110); Potassium 3.8 mmol/L (3.5-5.1); Protein, Total 6.4 g/dL (5.8-8.1); Sodium 135 mmol/L (136-145)
[2022-08-09 05:32] LABS: INR-International Normal Ratio 1.2; Prothrombin Time 15.2 sec (12.0-14.7)
[2022-08-09 05:53] LABS: Band 28 % (5-11); Lymphocytes 1 % (21-51); MDiff Complete? YES; Monocytes 4 % (0-10); Neutrophil 66 % (42-75)
[2022-08-09] MEDS: Levothyroxine Sodium 50 MCG TAB PO SCH (07:03)
[2022-08-09] MEDS ORDERED: Sodium Chloride 0.9% 250 ML IV SCH ×2 (07:30→12:00)
[2022-08-09 08:45] LABS: Bacteria/HPF 1+ HPF (None Seen); Bilirubin Negative (Negative); Blood, Urine Trace (Negative); CAUTI Indications for Culture Fever or rigors; Clarity Clear (Clear); Glucose, Urine (Dipstick) Greater than 1000 mg/dL (Negative); Ketone, Urine Trace mg/dL (Negative); Leukocyte 75 Leu/uL (Negative); Nitrite Negative (Negative); Protein, Urine (Dipstick) 20 mg/dL (Neg-Trace); RBC/HPF 0-3 HPF (0-3); Specific Gravity, Urine 1.019 (1.002-1.036); Squamous Epithelial 0-3 HPF (0-3); Urobilinogen Normal mg/dL (Less than 2); pH, Urine 5.5 (5.0-9.0)
[2022-08-09 08:46] LABS: Urine Culture Reflex Yes Yes
[2022-08-09] MEDS: Potassium Chloride 20 MEQ TAB PO SCH (09:28)
[2022-08-09] MEDS: Polyethylene Glycol 3350 17 GM Packet PO SCH (09:28)
[2022-08-09] MEDS: Enoxaparin Sodium 30 MG/0.3 ML SYRINGE SC SCH (09:28)
[2022-08-09] MEDS: Aspirin Chewable 81 MG TAB PO SCH (09:28)
[2022-08-09] MEDS: Sertraline 100 MG TAB PO SCH (09:28)
[2022-08-09] MEDS: Loratadine 10 MG TAB PO SCH (09:28)
[2022-08-09] MEDS: Multivit, Therapeutic 1 TAB PO SCH (09:28)
[2022-08-09] MEDS: Insulin Glargine 30 UNITS/0.3 ML VIAL SC SCH (10:07)
[2022-08-09] MEDS: Empagliflozin 10 MG TAB PO SCH (10:08)
[2022-08-09] MEDS ORDERED: cefTRIAXone\\ROCEPHIN 1 GM in Sodium Chloride 0.9% 100 ML IVPB SCH (11:00)
[2022-08-09 12:14] LABS: Lactic Acid 1.5 mmol/L (0.5-2.2)
[2022-08-09] MEDS: HumaLOG 300 UNITS/3 ML VIAL SC PRN ×2 (12:30→22:19)
[2022-08-09] MEDS ORDERED: Sodium Chloride 0.9% 500 ML IV SCH (13:00)
[2022-08-09] MEDS ORDERED: NOREPINEPHRINE 8 MG/250 ML-D5W 250 ML IVPB SCH ×2 (19:15→19:30)
[2022-08-09] MEDS ORDERED: Cefepime 2 GM in Sodium Chloride 0.9% 100 ML IVPB SCH (19:30)
[2022-08-09] MEDS ORDERED: Sodium Chloride 0.9% 1,000 ML IV SCH (20:15)
[2022-08-09] MEDS ORDERED: Atorvastatin Calcium 40 MG TAB PO SCH (21:00)
[2022-08-09] MEDS ORDERED: Vancomycin 1 GM in Premix Bag 1 BAG IVPB SCH ×2 (21:00→21:45)
[2022-08-09] MEDS: Melatonin 3 MG TAB PO SCH (21:17)
[2022-08-09] MEDS ORDERED: Vancomycin Dose by Levels Sliding Scale (Wt <71) FS SCH (21:45)
[2022-08-10 04:08] LABS: INR-International Normal Ratio 1.1; PTT 34.2 sec (22.9-36.1); Prothrombin Time 14.9 sec (12.0-14.7)
[2022-08-10 04:11] LABS: Mean Corpuscular HGB CONC 31.6 g/dL (32.0-36.0); Mean Corpuscular Volume 91.7 fl (78.0-98.0); Mean Platelet Volume 11.3 fL (7.4-10.4); Platelet Count 242 10x3/uL (130-400); RBC Distribution Width 15.5 % (11.5-14.5); White Blood Cell (WBC) Count 26.9 10x3/uL (4.8-10.8)
[2022-08-10 04:13] LABS: ALT (SGPT) 193 U/L (8-55); AST (SGOT) 91 U/L (5-34); Albumin 2.7 g/dL (3.4-4.8); Alkaline Phosphatase 199 U/L (40-110); Anion Gap 16 mmol/L (10-20); BUN (Urea Nitrogen) 45 mg/dL (9.8-20.1); Bilirubin, Total 0.8 mg/dL (0.2-1.2); Calc. Creatinine Clearance 19 mL/min (70-130); Calcium 8.1 mg/dL (7.8-10.44); Carbon Dioxide 26 mmol/L (23-31); Chloride 97 mmol/L (98-107); Estimated GFR 29; Globulin 3.1 g/dL (2.4-3.5); Glucose 236 mg/dL (83-110); Potassium 3.9 mmol/L (3.5-5.1); Protein, Total 5.8 g/dL (5.8-8.1); Sodium 135 mmol/L (136-145)
[2022-08-10 04:25] LABS: Band 24 % (5-11); Lymphocytes 3 % (21-51); MDiff Complete? YES; Monocytes 1 % (0-10); Neutrophil 72 % (42-75); Vacuoles SLIGHT
[2022-08-10] MEDS: Levothyroxine Sodium 50 MCG TAB PO SCH (05:33)
[2022-08-10] MEDS: HumaLOG 300 UNITS/3 ML VIAL SC PRN ×2 (05:51→08:35)
[2022-08-10] MEDS: Enoxaparin Sodium 30 MG/0.3 ML SYRINGE SC SCH (08:19)
[2022-08-10] MEDS: Sertraline 100 MG TAB PO SCH (08:19)
[2022-08-10] MEDS: Aspirin Chewable 81 MG TAB PO SCH (08:19)
[2022-08-10] MEDS: Potassium Chloride 20 MEQ TAB PO SCH (08:20)
[2022-08-10] MEDS: Loratadine 10 MG TAB PO SCH (08:20)
[2022-08-10] MEDS: Polyethylene Glycol 3350 17 GM Packet PO SCH (08:20)
[2022-08-10] MEDS: Multivit, Therapeutic 1 TAB PO SCH (08:20)
[2022-08-10] MEDS: Insulin Glargine 30 UNITS/0.3 ML VIAL SC SCH (08:20)
[2022-08-10] MEDS ORDERED: cefTRIAXone\\ROCEPHIN 1 GM in Sodium Chloride 0.9% 100 ML IVPB SCH (14:00)
[2022-08-10] MEDS ORDERED: Cefepime 1 GM in Sodium Chloride 0.9% 100 ML IVPB SCH (20:00)
[2022-08-10] MEDS: Melatonin 3 MG TAB PO SCH (20:24)
[2022-08-10 20:47] LABS: Vancomycin, Random 7.7 ug/mL (See Comment)
[2022-08-10] MEDS ORDERED: Vancomycin HCl 750 MG in Sodium Chloride 0.9% 250 ML 250 ML IVPB SCH (21:15)
[2022-08-11] MEDS: Levothyroxine Sodium 50 MCG TAB PO SCH (05:54)
[2022-08-11 06:41] LABS: Hemoglobin 10.6 g/dL (12.0-16.0); Mean Corpuscular HGB CONC 31.3 g/dL (32.0-36.0); Mean Corpuscular Hemoglobin 28.4 pg (27.0-31.0); Mean Corpuscular Volume 90.7 fl (78.0-98.0); Platelet Count 268 10x3/uL (130-400); RBC Distribution Width 15.5 % (11.5-14.5); Red Blood Cell (RBC) Count 3.73 mill/uL (4.20-5.40); White Blood Cell (WBC) Count 24.4 10x3/uL (4.8-10.8)
[2022-08-11 06:42] LABS: INR-International Normal Ratio 1.1; Prothrombin Time 14.3 sec (12.0-14.7)
[2022-08-11 06:52] LABS: ALT (SGPT) 156 U/L (8-55); AST (SGOT) 101 U/L (5-34); Albumin 2.6 g/dL (3.4-4.8); Alkaline Phosphatase 179 U/L (40-110); Anion Gap 14 mmol/L (10-20); BUN (Urea Nitrogen) 35 mg/dL (9.8-20.1); Bilirubin, Total 0.8 mg/dL (0.2-1.2); Calc. Creatinine Clearance 39 mL/min (70-130); Carbon Dioxide 23 mmol/L (23-31); Chloride 102 mmol/L (98-107); Estimated GFR 58; Glucose 102 mg/dL (83-110); Potassium 3.9 mmol/L (3.5-5.1); Protein, Total 5.6 g/dL (5.8-8.1); Sodium 135 mmol/L (136-145)
[2022-08-11 08:12] LABS: Band 3 % (5-11); Lymphocytes 6 % (21-51); MDiff Complete? YES; Monocytes 3 % (0-10); Neutrophil 88 % (42-75); RBC Morphology Normal
[2022-08-11] MEDS: Polyethylene Glycol 3350 17 GM Packet PO SCH (08:28)
[2022-08-11] MEDS: Insulin Glargine 30 UNITS/0.3 ML VIAL SC SCH (08:28)
[2022-08-11] MEDS: Enoxaparin Sodium 30 MG/0.3 ML SYRINGE SC SCH (08:28)
[2022-08-11] MEDS: Multivit, Therapeutic 1 TAB PO SCH (08:31)
[2022-08-11] MEDS: Loratadine 10 MG TAB PO SCH (08:31)
[2022-08-11] MEDS: Aspirin Chewable 81 MG TAB PO SCH (08:31)
[2022-08-11] MEDS: Potassium Chloride 20 MEQ TAB PO SCH (08:31)
[2022-08-11] MEDS: Sertraline 100 MG TAB PO SCH (08:32)
[2022-08-11] MEDS ORDERED: cefTRIAXone\\ROCEPHIN 2 GM in Sodium Chloride 0.9% 100 ML IVPB SCH (13:00)
[2022-08-11] MEDS: Melatonin 3 MG TAB PO SCH (19:58)
[2022-08-11] MEDS: HumaLOG 300 UNITS/3 ML VIAL SC PRN (20:20)
[2022-08-12 05:36] LABS: Hemoglobin 10.7 g/dL (12.0-16.0); Mean Corpuscular HGB CONC 32.1 g/dL (32.0-36.0); Mean Corpuscular Volume 90.3 fl (78.0-98.0); Platelet Count 268 10x3/uL (130-400); RBC Distribution Width 15.6 % (11.5-14.5)
[2022-08-12 05:45] LABS: ALT (SGPT) 139 U/L (8-55); AST (SGOT) 99 U/L (5-34); Albumin 2.5 g/dL (3.4-4.8); Alkaline Phosphatase 228 U/L (40-110); Anion Gap 10 mmol/L (10-20); BUN (Urea Nitrogen) 29 mg/dL (9.8-20.1); Bilirubin, Total 0.7 mg/dL (0.2-1.2); Calc. Creatinine Clearance 42 mL/min (70-130); Calcium 8.1 mg/dL (7.8-10.44); Carbon Dioxide 25 mmol/L (23-31); Chloride 104 mmol/L (98-107); Estimated GFR 63; Glucose 165 mg/dL (83-110); Potassium 4.1 mmol/L (3.5-5.1); Protein, Total 5.5 g/dL (5.8-8.1); Sodium 135 mmol/L (136-145)
[2022-08-12 05:54] LABS: Anisocytosis SLIGHT = 6-15 cells (100X) (0-5/hpf); Burr Cells SLIGHT = 2-5 cells (100X) (0-1/hpf); Eosinophils 1 % (0-10); Lymphocytes 12 % (21-51); MDiff Complete? YES; Monocytes 7 % (0-10); Neutrophil 80 % (42-75); Platelet Morphology Comment Appears Adequate; Target Cells SLIGHT = 2-5 cells (100X) (0-1/hpf); White Blood Cell (WBC) Count 15.8 10x3/uL (4.8-10.8)
[2022-08-12] MEDS: Levothyroxine Sodium 50 MCG TAB PO SCH (06:02)
[2022-08-12] MEDS: HumaLOG 300 UNITS/3 ML VIAL SC PRN (06:03)
[2022-08-12] MEDS: Torsemide 10 MG TAB PO SCH (08:35)
[2022-08-12] MEDS: Enoxaparin Sodium 40 MG/0.4 ML SYRINGE SC SCH (08:35)
[2022-08-12] MEDS: Potassium Chloride 20 MEQ TAB PO SCH (08:36)
[2022-08-12] MEDS: Multivit, Therapeutic 1 TAB PO SCH (08:36)
[2022-08-12] MEDS: Loratadine 10 MG TAB PO SCH (08:36)
[2022-08-12] MEDS: Losartan 25 MG TAB PO SCH (08:36)
[2022-08-12] MEDS: Insulin Glargine 30 UNITS/0.3 ML VIAL SC SCH (08:36)
[2022-08-12] MEDS: Aspirin Chewable 81 MG TAB PO SCH (08:36)
[2022-08-12] MEDS: Polyethylene Glycol 3350 17 GM Packet PO SCH (08:37)
[2022-08-12] MEDS: Sertraline 100 MG TAB PO SCH (08:37)
[2022-08-12] MEDS: Oxacillin 2 GM in Sodium Chloride 0.9% 100 ML IVPB SCH ×3 (12:15→21:40)
[2022-08-12] MEDS: Melatonin 3 MG TAB PO SCH (21:40)
[2022-08-13] MEDS: Oxacillin 2 GM in Sodium Chloride 0.9% 100 ML IVPB SCH ×6 (01:06→19:53)
[2022-08-13 05:28] LABS: Hemoglobin 11.1 g/dL (12.0-16.0); Mean Corpuscular HGB CONC 31.9 g/dL (32.0-36.0); Mean Corpuscular Hemoglobin 28.8 pg (27.0-31.0); Mean Corpuscular Volume 90.2 fl (78.0-98.0); Mean Platelet Volume 10.7 fL (7.4-10.4); Platelet Count 274 10x3/uL (130-400); RBC Distribution Width 15.3 % (11.5-14.5); Red Blood Cell (RBC) Count 3.85 mill/uL (4.20-5.40); White Blood Cell (WBC) Count 13.3 10x3/uL (4.8-10.8)
[2022-08-13] MEDS: Levothyroxine Sodium 50 MCG TAB PO SCH (05:31)
[2022-08-13 05:46] LABS: ALT (SGPT) 121 U/L (8-55); AST (SGOT) 90 U/L (5-34); Albumin 2.5 g/dL (3.4-4.8); Alkaline Phosphatase 241 U/L (40-110); Anion Gap 12 mmol/L (10-20); BUN (Urea Nitrogen) 29 mg/dL (9.8-20.1); Bilirubin, Total 0.9 mg/dL (0.2-1.2); Calc. Creatinine Clearance 40 mL/min (70-130); Calcium 7.9 mg/dL (7.8-10.44); Carbon Dioxide 26 mmol/L (23-31); Chloride 104 mmol/L (98-107); Estimated GFR 59; Globulin 3.1 g/dL (2.4-3.5); Glucose 135 mg/dL (83-110); Potassium 4.1 mmol/L (3.5-5.1); Protein, Total 5.6 g/dL (5.8-8.1); Sodium 138 mmol/L (136-145)
[2022-08-13 05:48] LABS: Band 2 % (5-11); Hypochromia SLIGHT = 6-15 cells (100X) (0-5/hpf); Lymphocytes 21 % (21-51); MDiff Complete? YES; Monocytes 9 % (0-10); Neutrophil 64 % (42-75); Platelet Morphology Comment Appears Adequate; Reactive Lymphocytes 4 % (0-10)
[2022-08-13] MEDS: Enoxaparin Sodium 40 MG/0.4 ML SYRINGE SC SCH (10:12)
[2022-08-13] MEDS: Polyethylene Glycol 3350 17 GM Packet PO SCH (10:13)
[2022-08-13] MEDS: Insulin Glargine 30 UNITS/0.3 ML VIAL SC SCH (10:15)
[2022-08-13] MEDS: Torsemide 10 MG TAB PO SCH (10:16)
[2022-08-13] MEDS: Potassium Chloride 20 MEQ TAB PO SCH (10:18)
[2022-08-13] MEDS: Multivit, Therapeutic 1 TAB PO SCH (10:18)
[2022-08-13] MEDS: Loratadine 10 MG TAB PO SCH (10:18)
[2022-08-13] MEDS: Sertraline 100 MG TAB PO SCH (10:18)
[2022-08-13] MEDS: Aspirin Chewable 81 MG TAB PO SCH (10:18)
[2022-08-13] MEDS: Losartan 25 MG TAB PO SCH (10:33)
[2022-08-13] MEDS: HumaLOG 300 UNITS/3 ML VIAL SC PRN ×2 (12:11→17:37)
[2022-08-13 15:26] VITALS: BMI 20.3
[2022-08-13] MEDS ORDERED: Sodium Chloride 0.9% 500 ML IVPB SCH (15:45)
[2022-08-13] MEDS: Melatonin 3 MG TAB PO SCH (19:53)
[2022-08-14] MEDS: Oxacillin 2 GM in Sodium Chloride 0.9% 100 ML IVPB SCH ×6 (00:22→19:51)
[2022-08-14] MEDS: Levothyroxine Sodium 50 MCG TAB PO SCH (05:01)
[2022-08-14 06:25] LABS: ALT (SGPT) 95 U/L (8-55); AST (SGOT) 71 U/L (5-34); Albumin 2.2 g/dL (3.4-4.8); Alkaline Phosphatase 199 U/L (40-110); Anion Gap 13 mmol/L (10-20); BUN (Urea Nitrogen) 25 mg/dL (9.8-20.1); Bilirubin, Total 0.8 mg/dL (0.2-1.2); Calc. Creatinine Clearance 39 mL/min (70-130); Calcium 7.6 mg/dL (7.8-10.44); Carbon Dioxide 24 mmol/L (23-31); Chloride 107 mmol/L (98-107); Estimated GFR 57; Glucose 152 mg/dL (83-110); Lymphocytes 4 % (21-51); MDiff Complete? YES; Mean Corpuscular HGB CONC 32.9 g/dL (32.0-36.0); Mean Corpuscular Hemoglobin 29.9 pg (27.0-31.0); Mean Corpuscular Volume 90.6 fl (78.0-98.0); Mean Platelet Volume 10.3 fL (7.4-10.4); Metamyelocyte 2 % (0-0); Monocytes 13 % (0-10); Neutrophil 81 % (42-75); Platelet Count 277 10x3/uL (130-400); Platelet Morphology Comment Appears Adequate; Potassium 3.9 mmol/L (3.5-5.1); Protein, Total 5.2 g/dL (5.8-8.1); RBC Distribution Width 15.4 % (11.5-14.5); RBC Morphology Normal; Red Blood Cell (RBC) Count 3.69 mill/uL (4.20-5.40); Sodium 140 mmol/L (136-145); White Blood Cell (WBC) Count 12.9 10x3/uL (4.8-10.8)
[2022-08-14] MEDS: Multivit, Therapeutic 1 TAB PO SCH (09:28)
[2022-08-14] MEDS: Enoxaparin Sodium 40 MG/0.4 ML SYRINGE SC SCH (09:28)
[2022-08-14] MEDS: Sertraline 100 MG TAB PO SCH (09:28)
[2022-08-14] MEDS: Aspirin Chewable 81 MG TAB PO SCH (09:28)
[2022-08-14] MEDS: Torsemide 10 MG TAB PO SCH (09:29)
[2022-08-14] MEDS: Insulin Glargine 30 UNITS/0.3 ML VIAL SC SCH (09:31)
[2022-08-14] MEDS: Polyethylene Glycol 3350 17 GM Packet PO SCH (09:31)
[2022-08-14] MEDS: Potassium Chloride 20 MEQ TAB PO SCH (09:34)
[2022-08-14] MEDS: Loratadine 10 MG TAB PO SCH (09:34)
[2022-08-14] MEDS: Losartan 25 MG TAB PO SCH (09:34)
[2022-08-14] MEDS: HumaLOG 300 UNITS/3 ML VIAL SC PRN ×3 (12:39→20:47)
[2022-08-14] MEDS: Melatonin 3 MG TAB PO SCH (19:52)
[2022-08-15] MEDS: Oxacillin 2 GM in Sodium Chloride 0.9% 100 ML IVPB SCH ×6 (01:01→20:42)
[2022-08-15] MEDS: Levothyroxine Sodium 50 MCG TAB PO SCH (05:40)
[2022-08-15] MEDS: HumaLOG 300 UNITS/3 ML VIAL SC PRN (05:46)
[2022-08-15 06:33] LABS: ALT (SGPT) 93 U/L (8-55); AST (SGOT) 61 U/L (5-34); Albumin 2.3 g/dL (3.4-4.8); Alkaline Phosphatase 199 U/L (40-110); Anion Gap 15 mmol/L (10-20); BUN (Urea Nitrogen) 23 mg/dL (9.8-20.1); Bilirubin, Total 0.8 mg/dL (0.2-1.2); Calc. Creatinine Clearance 33 mL/min (70-130); Calcium 8.1 mg/dL (7.8-10.44); Carbon Dioxide 20 mmol/L (23-31); Estimated GFR 48; Globulin 3.5 g/dL (2.4-3.5); Glucose 180 mg/dL (83-110); Protein, Total 5.8 g/dL (5.8-8.1)
[2022-08-15 06:37] LABS: Chloride 106 mmol/L (98-107); Sodium 136 mmol/L (136-145)
[2022-08-15 06:44] LABS: Band 3 % (5-11); Hemoglobin 11.8 g/dL (12.0-16.0); Hypochromia SLIGHT = 6-15 cells (100X) (0-5/hpf); Lymphocytes 19 % (21-51); MDiff Complete? YES; Mean Corpuscular HGB CONC 30.5 g/dL (32.0-36.0); Mean Corpuscular Hemoglobin 28.5 pg (27.0-31.0); Mean Corpuscular Volume 93.6 fl (78.0-98.0); Mean Platelet Volume 10.2 fL (7.4-10.4); Monocytes 5 % (0-10); Neutrophil 73 % (42-75); Platelet Count 296 10x3/uL (130-400); Platelet Morphology Comment Appears Adequate; RBC Distribution Width 15.4 % (11.5-14.5); Red Blood Cell (RBC) Count 4.14 mill/uL (4.20-5.40); Target Cells SLIGHT = 2-5 cells (100X) (0-1/hpf); White Blood Cell (WBC) Count 14.7 10x3/uL (4.8-10.8)
[2022-08-15] MEDS: Torsemide 10 MG TAB PO SCH (09:12)
[2022-08-15] MEDS: Polyethylene Glycol 3350 17 GM Packet PO SCH (09:12)
[2022-08-15] MEDS: Insulin Glargine 30 UNITS/0.3 ML VIAL SC SCH (09:12)
[2022-08-15] MEDS: Sertraline 100 MG TAB PO SCH (09:13)
[2022-08-15] MEDS: Aspirin Chewable 81 MG TAB PO SCH (09:13)
[2022-08-15] MEDS: Potassium Chloride 20 MEQ TAB PO SCH (09:13)
[2022-08-15] MEDS: Loratadine 10 MG TAB PO SCH (09:13)
[2022-08-15] MEDS: Losartan 25 MG TAB PO SCH (09:13)
[2022-08-15] MEDS: Enoxaparin Sodium 40 MG/0.4 ML SYRINGE SC SCH (09:13)
[2022-08-15] MEDS: Multivit, Therapeutic 1 TAB PO SCH (09:14)
[2022-08-15] MEDS ORDERED: Empagliflozin 10 MG TAB PO SCH (10:45)
[2022-08-15] MEDS ORDERED: Amiodarone 200 MG TAB PO SCH (10:45)
[2022-08-15] MEDS: metFORMIN 500 MG TAB PO SCH (18:01)
[2022-08-15] MEDS: Melatonin 3 MG TAB PO SCH (20:42)
[2022-08-15] MEDS: Atorvastatin Calcium 40 MG TAB PO SCH (20:43)
[2022-08-16] MEDS: Oxacillin 2 GM in Sodium Chloride 0.9% 100 ML IVPB SCH ×4 (01:18→13:11)
[2022-08-16] MEDS: Levothyroxine Sodium 50 MCG TAB PO SCH (05:06)
[2022-08-16 05:44] LABS: Hemoglobin 10.8 g/dL (12.0-16.0); Mean Corpuscular HGB CONC 31.8 g/dL (32.0-36.0); Mean Corpuscular Hemoglobin 29.1 pg (27.0-31.0); Mean Corpuscular Volume 91.4 fl (78.0-98.0); Mean Platelet Volume 10.1 fL (7.4-10.4); Platelet Count 292 10x3/uL (130-400); RBC Distribution Width 15.9 % (11.5-14.5); Red Blood Cell (RBC) Count 3.73 mill/uL (4.20-5.40); White Blood Cell (WBC) Count 11.5 10x3/uL (4.8-10.8)
[2022-08-16 06:10] LABS: ALT (SGPT) 66 U/L (8-55); AST (SGOT) 46 U/L (5-34); Albumin 2.2 g/dL (3.4-4.8); Alkaline Phosphatase 191 U/L (40-110); Anion Gap 10 mmol/L (10-20); BUN (Urea Nitrogen) 17 mg/dL (9.8-20.1); Bilirubin, Total 0.6 mg/dL (0.2-1.2); Calc. Creatinine Clearance 39 mL/min (70-130); Calcium 7.8 mg/dL (7.8-10.44); Carbon Dioxide 27 mmol/L (23-31); Chloride 108 mmol/L (98-107); Estimated GFR 55; Globulin 3.1 g/dL (2.4-3.5); Glucose 119 mg/dL (83-110); Potassium 4.1 mmol/L (3.5-5.1); Protein, Total 5.3 g/dL (5.8-8.1); Sodium 141 mmol/L (136-145)
[2022-08-16 06:45] LABS: Anisocytosis SLIGHT = 6-15 cells (100X) (0-5/hpf); Band 2 % (5-11); Hypochromia SLIGHT = 6-15 cells (100X) (0-5/hpf); Lymphocytes 13 % (21-51); MDiff Complete? YES; Metamyelocyte 1 % (0-0); Monocytes 13 % (0-10); Myelocyte 2 % (0-0); Neutrophil 69 % (42-75); Toxic Granulation SLIGHT; Vacuoles SLIGHT
[2022-08-16] MEDS: Potassium Chloride 20 MEQ TAB PO SCH (08:42)
[2022-08-16] MEDS: metFORMIN 500 MG TAB PO SCH ×2 (08:42→17:47)
[2022-08-16] MEDS: Empagliflozin 10 MG TAB PO SCH (09:43)
[2022-08-16] MEDS: Loratadine 10 MG TAB PO SCH (09:43)
[2022-08-16] MEDS: Enoxaparin Sodium 40 MG/0.4 ML SYRINGE SC SCH (09:43)
[2022-08-16] MEDS: Amiodarone 200 MG TAB PO SCH (09:43)
[2022-08-16] MEDS: Losartan 25 MG TAB PO SCH (09:43)
[2022-08-16] MEDS: Insulin Glargine 30 UNITS/0.3 ML VIAL SC SCH (09:43)
[2022-08-16] MEDS: Aspirin Chewable 81 MG TAB PO SCH (09:43)
[2022-08-16] MEDS: Multivit, Therapeutic 1 TAB PO SCH (09:44)
[2022-08-16] MEDS: Torsemide 10 MG TAB PO SCH (09:46)
[2022-08-16] MEDS: Sertraline 100 MG TAB PO SCH (09:46)
[2022-08-16] MEDS: Polyethylene Glycol 3350 17 GM Packet PO SCH (09:46)
[2022-08-16] MEDS ORDERED: PROPOFOL 200 MG/20 ML VIAL ONE (12:07)
[2022-08-16] MEDS: CEFAZOLIN 2 GM in Sodium Chloride 0.9% 100 ML IVPB SCH (21:24)
[2022-08-16] MEDS: Atorvastatin Calcium 40 MG TAB PO SCH (21:24)
[2022-08-16] MEDS: Melatonin 3 MG TAB PO SCH (21:25)
[2022-08-17] MEDS: Levothyroxine Sodium 50 MCG TAB PO SCH (06:11)
[2022-08-17] MEDS: CEFAZOLIN 2 GM in Sodium Chloride 0.9% 100 ML IVPB SCH (06:11)
[2022-08-17 06:20] LABS: ALT (SGPT) 64 U/L (8-55); AST (SGOT) 64 U/L (5-34); Albumin 2.2 g/dL (3.4-4.8); Alkaline Phosphatase 225 U/L (40-110); Anion Gap 16 mmol/L (10-20); BUN (Urea Nitrogen) 18 mg/dL (9.8-20.1); Bilirubin, Total 1.6 mg/dL (0.2-1.2); Calc. Creatinine Clearance 40 mL/min (70-130); Carbon Dioxide 19 mmol/L (23-31); Estimated GFR 57; Globulin 3.8 g/dL (2.4-3.5); Glucose 229 mg/dL (83-110)
[2022-08-17 06:31] LABS: Hemoglobin 11.6 g/dL (12.0-16.0); Hypochromia SLIGHT = 6-15 cells (100X) (0-5/hpf); Lymphocytes 14 % (21-51); MDiff Complete? YES; Mean Corpuscular HGB CONC 31.4 g/dL (32.0-36.0); Mean Corpuscular Hemoglobin 29.1 pg (27.0-31.0); Mean Corpuscular Volume 92.5 fl (78.0-98.0); Mean Platelet Volume 10.2 fL (7.4-10.4); Monocytes 9 % (0-10); Neutrophil 77 % (42-75); Platelet Count 298 10x3/uL (130-400); Platelet Morphology Comment Appears Adequate; RBC Distribution Width 16.5 % (11.5-14.5); Red Blood Cell (RBC) Count 3.99 mill/uL (4.20-5.40); White Blood Cell (WBC) Count 16.8 10x3/uL (4.8-10.8)
[2022-08-17 06:46] LABS: Chloride 106 mmol/L (98-107); Potassium 4.4 mmol/L (3.5-5.1); Sodium 137 mmol/L (136-145)
[2022-08-17] MEDS: Losartan 25 MG TAB PO SCH (08:27)
[2022-08-17] MEDS: Sertraline 100 MG TAB PO SCH (08:28)
[2022-08-17] MEDS: Multivit, Therapeutic 1 TAB PO SCH (08:28)
[2022-08-17] MEDS: Enoxaparin Sodium 40 MG/0.4 ML SYRINGE SC SCH (08:28)
[2022-08-17] MEDS: Empagliflozin 10 MG TAB PO SCH (08:28)
[2022-08-17] MEDS: metFORMIN 500 MG TAB PO SCH (08:28)
[2022-08-17] MEDS: Potassium Chloride 20 MEQ TAB PO SCH (08:28)
[2022-08-17] MEDS: Insulin Glargine 30 UNITS/0.3 ML VIAL SC SCH (08:29)
[2022-08-17] MEDS: Aspirin Chewable 81 MG TAB PO SCH (08:29)
[2022-08-17] MEDS: Loratadine 10 MG TAB PO SCH (08:29)
[2022-08-17] MEDS: Amiodarone 200 MG TAB PO SCH (08:29)
[2022-08-17] MEDS: Torsemide 10 MG TAB PO SCH (08:29)
[2022-08-17] MEDS: Polyethylene Glycol 3350 17 GM Packet PO SCH ×2 (08:30→08:32)
[2022-08-17] MEDS ORDERED: Losartan 25 MG TAB PO SCH (09:00)
[2022-08-17 12:04] VITALS: BP 103/55; TEMP 98.1
[2022-08-17] MEDS: Ergocalciferol 1.25 MG(50,000 UNITS) CAP PO SCH (12:07)
== END 2022-08-17 11:55 | DRG 441 ==
LOC: ERS 14:46 → 2NO 17:33 → INTOOBSV 17:33 → OBSVTOIN 08-01 17:05 → CCU 08-09 18:36 → NEURO 08-10 21:59
PROVIDERS: ADMIT Family Medicine; ATTEND Family Medicine
PROC: 3E03329 Introduction of Other Anti-infective into Peripheral Vein, Percutaneous Approach (ICD-10-PCS; 2022-08-09)
PROC: 02HV33Z Insertion of Infusion Device into Superior Vena Cava, Percutaneous Approach (ICD-10-PCS; principal; 2022-08-15)
PROC: B548ZZA Ultrasonography of Superior Vena Cava, Guidance (ICD-10-PCS; 2022-08-15)
PROC: B24BZZ4 Ultrasonography of Heart with Aorta, Transesophageal (ICD-10-PCS; 2022-08-16)
DX: K72.00 Acute and subacute hepatic failure without coma (principal); A41.01 Sepsis due to Methicillin susceptible Staphylococcus aureus; J96.01 Acute respiratory failure with hypoxia; R65.21 Severe sepsis with septic shock; B17.9 Acute viral hepatitis, unspecified; I50.22 Chronic systolic (congestive) heart failure; I13.0 Hypertensive heart and chronic kidney disease with heart failure and stage 1 through stage 4 chronic kidney disease, or unspecified chronic kidney disease; N17.9 Acute kidney failure, unspecified; N39.0 Urinary tract infection, site not specified; N18.4 Chronic kidney disease, stage 4 (severe); I42.9 Cardiomyopathy, unspecified; I38 Endocarditis, valve unspecified; J10.1 Influenza due to other identified influenza virus with other respiratory manifestations; Z20.822 Contact with and (suspected) exposure to COVID-19; I48.91 Unspecified atrial fibrillation; E78.5 Hyperlipidemia, unspecified; F41.9 Anxiety disorder, unspecified; F32.A Depression, unspecified; E03.9 Hypothyroidism, unspecified; K59.00 Constipation, unspecified; E11.22 Type 2 diabetes mellitus with diabetic chronic kidney disease; E87.6 Hypokalemia; R63.4 Abnormal weight loss; I25.10 Atherosclerotic heart disease of native coronary artery without angina pectoris; Z79.82 Long term (current) use of aspirin; Z79.899 Other long term (current) drug therapy; Z79.51 Long term (current) use of inhaled steroids; Z79.4 Long term (current) use of insulin; Z79.84 Long term (current) use of oral hypoglycemic drugs; Z79.890 Hormone replacement therapy; Z74.01 Bed confinement status; Z68.21 Body mass index [BMI] 21.0-21.9, adult
CPT/HCPCS: 36415; 36416; 36569; 51701; 71045; 74177; 76705; 80053; 80074; 80202; 81001; 81003; 82140; 82390; 82553; 82570; 83036; 83605; 83735; 83880; 84145; 84484; 84540; 85025; 85610; 85730; 86015; 86038; 86225; 87040; 87077; 87086; 87149; 87186; 87633; 87798; 87811; 93005; 93306; 93312; 94640; 96372; C1751; G0378; J0692; J0696; J1650; J1815; J2700; J2704; J3370; J3370-JW; J3490; J7030; J7050; J7120; J7620; Q9967

== ENCOUNTER 2022-08-28 15:58 | Inpatient (IN) | payer OTHER ==
[2022-08-28 17:21] LABS: #Basophils 0.1 thou/uL (0.0-0.2); #Eosinphils 1.1 thou/uL (0.0-0.7); #Lymphocytes 1.7 thou/uL (1.20-3.40); #Monocytes 0.4 thou/uL (0.11-0.59); #Neutrophils 7.4 thou/uL (1.40-6.50); %Basophils 0.5 % (0.0-1.0); %Eosinophils 10.5 % (0.0-10.0); %Lymphocytes 15.9 % (21.0-51.0); %Monocytes 3.9 % (0.0-10.0); %Neutrophils 69.2 % (42.0-75.0); Hemoglobin 11.4 g/dL (12.0-16.0); Mean Corpuscular HGB CONC 31.1 g/dL (32.0-36.0); Mean Corpuscular Hemoglobin 30.4 pg (27.0-31.0); Mean Corpuscular Volume 97.6 fl (78.0-98.0); Mean Platelet Volume 11.6 fL (7.4-10.4); Platelet Count 205 10x3/uL (130-400); RBC Distribution Width 19.3 % (11.5-14.5); Red Blood Cell (RBC) Count 3.75 mill/uL (4.20-5.40); White Blood Cell (WBC) Count 10.6 10x3/uL (4.8-10.8)
[2022-08-28 17:24] LABS: Bilirubin Negative (Negative); Blood, Urine Negative (Negative); Clarity Clear (Clear); Glucose, Urine (Dipstick) Greater than 1000 mg/dL (Negative); Ketone, Urine Negative (Negative); Leukocyte Negative Leu/uL (Negative); Nitrite Negative (Negative); Protein, Urine (Dipstick) Negative (Neg-Trace); Specific Gravity, Urine 1.013 (1.002-1.036); Urobilinogen Normal mg/dL (Less than 2)
[2022-08-28 17:44] LABS: ALT (SGPT) Less than 7 U/L (8-55); AST (SGOT) 47 U/L (5-34); Albumin 3.6 g/dL (3.4-4.8); Alkaline Phosphatase 304 U/L (40-110); Anion Gap 19 mmol/L (10-20); BUN (Urea Nitrogen) 17 mg/dL (9.8-20.1); Bilirubin, Total 0.7 mg/dL (0.2-1.2); Calc. Creatinine Clearance 0 mL/min (70-130); Calcium 9.2 mg/dL (7.8-10.44); Carbon Dioxide 25 mmol/L (23-31); Chloride 101 mmol/L (98-107); Estimated GFR 46; Globulin 4.7 g/dL (2.4-3.5); Glucose 274 mg/dL (83-110); Potassium 5.1 mmol/L (3.5-5.1); Protein, Total 8.3 g/dL (5.8-8.1); Sodium 140 mmol/L (136-145)
[2022-08-28] MEDS ORDERED: Vancomycin 1 GM/200 ML (FROZEN) BAG ONE (18:19)
[2022-08-28] MEDS ORDERED: Cefepime 2 GM VIAL ONE (18:19)
[2022-08-28] MEDS ORDERED: Acetaminophen 325 MG TAB PO PRN (19:33)
[2022-08-28] MEDS ORDERED: Aspirin Chewable 81 MG TAB ONE (19:45)
[2022-08-28] MEDS ORDERED: Furosemide 40 MG/4 ML VIAL ONE (19:45)
[2022-08-28] MEDS ORDERED: Ipratropium/Albuterol 3 ML NEB NEB PRN (19:54)
[2022-08-28] MEDS ORDERED: Diclofenac 1% 100 GM GEL TP PRN (19:54)
[2022-08-28] MEDS ORDERED: Dextrose 50% Abboject 50 ML SYRINGE SLOW IVP PRN (19:56)
[2022-08-28] MEDS ORDERED: Dextrose 5% in Water 1,000 ML IV PRN (19:56)
[2022-08-28] MEDS ORDERED: HumaLOG 300 UNITS/3 ML VIAL SC PRN (19:56)
[2022-08-28] MEDS ORDERED: Docusate 100 MG CAP PO PRN (20:09)
[2022-08-28 20:19] LABS: Magnesium 1.8 mg/dL (1.6-2.6); Phosphorus 4.4 mg/dL (2.3-4.7)
[2022-08-28 20:28] LABS: Lactic Acid 1.9 mmol/L (0.5-2.2)
[2022-08-28] MEDS ORDERED: Magnesium 2 GM/50 ML(in water) 1 GM in Premix Bag 1 BAG IVPB SCH (20:45)
[2022-08-28] MEDS ORDERED: Magnesium 2 GM/50 ML BAG (IN WATER) ONE (20:48)
[2022-08-28] MEDS ORDERED: Insulin Glargine 30 UNITS/0.3 ML VIAL SC SCH (21:00)
[2022-08-28] MEDS: Atorvastatin Calcium 40 MG TAB PO SCH (21:02)
[2022-08-28] MEDS: Melatonin 3 MG TAB PO SCH (21:02)
[2022-08-28 21:32] LABS: Troponin I 0.197 ng/mL (< 0.028)
[2022-08-29 01:54] LABS: Troponin I 0.231 ng/mL (< 0.028)
[2022-08-29 04:52] LABS: #Basophils 0.1 thou/uL (0.0-0.2); #Eosinphils 1.7 thou/uL (0.0-0.7); #Lymphocytes 2.5 thou/uL (1.20-3.40); #Monocytes 0.6 thou/uL (0.11-0.59); #Neutrophils 6.4 thou/uL (1.40-6.50); %Basophils 0.9 % (0.0-1.0); %Eosinophils 15.2 % (0.0-10.0); %Lymphocytes 22.1 % (21.0-51.0); %Monocytes 5.3 % (0.0-10.0); %Neutrophils 56.5 % (42.0-75.0); Hemoglobin 9.3 g/dL (12.0-16.0); Mean Corpuscular HGB CONC 31.2 g/dL (32.0-36.0); Mean Corpuscular Hemoglobin 30.2 pg (27.0-31.0); Mean Corpuscular Volume 96.6 fl (78.0-98.0); Mean Platelet Volume 11.2 fL (7.4-10.4); Platelet Count 183 10x3/uL (130-400); RBC Distribution Width 19.1 % (11.5-14.5); Red Blood Cell (RBC) Count 3.09 mill/uL (4.20-5.40); White Blood Cell (WBC) Count 11.2 10x3/uL (4.8-10.8)
[2022-08-29 05:19] LABS: ALT (SGPT) Less than 7 U/L (8-55); AST (SGOT) 30 U/L (5-34); Albumin 2.8 g/dL (3.4-4.8); Alkaline Phosphatase 218 U/L (40-110); Anion Gap 11 mmol/L (10-20); BUN (Urea Nitrogen) 15 mg/dL (9.8-20.1); Bilirubin, Total 0.5 mg/dL (0.2-1.2); Calc. Creatinine Clearance 0 mL/min (70-130); Calcium 8.2 mg/dL (7.8-10.44); Carbon Dioxide 31 mmol/L (23-31); Chloride 101 mmol/L (98-107); Estimated GFR 66; Globulin 3.1 g/dL (2.4-3.5); Glucose 43 mg/dL (83-110); Potassium 3.5 mmol/L (3.5-5.1); Protein, Total 5.9 g/dL (5.8-8.1); Sodium 139 mmol/L (136-145)
[2022-08-29] MEDS ORDERED: Dextrose 50% Abboject 50 ML SYRINGE ONE (05:25)
[2022-08-29 05:28] LABS: Troponin I 0.232 ng/mL (< 0.028)
[2022-08-29] MEDS ORDERED: CEFAZOLIN 2 GM in Sodium Chloride 0.9% 100 ML IVPB SCH (06:00)
[2022-08-29 06:14] LABS: SARS-CoV-2 NAA Rapid Test Not Detected (NotDetected)
[2022-08-29] MEDS ORDERED: CEFAZOLIN 2 GM VIAL ONE (06:44)
[2022-08-29] MEDS ORDERED: Potassium Chloride 20 MEQ TAB ONE (07:57)
[2022-08-29] MEDS: Potassium Chloride 20 MEQ TAB PO SCH (07:59)
[2022-08-29] MEDS ORDERED: Insulin Glargine 30 UNITS/0.3 ML VIAL SC SCH (09:00)
[2022-08-29] MEDS: Empagliflozin 10 MG TAB PO SCH (09:21)
[2022-08-29] MEDS: Aspirin Chewable 81 MG TAB PO SCH (09:21)
[2022-08-29] MEDS: Amiodarone 200 MG TAB PO SCH (09:21)
[2022-08-29] MEDS: Losartan 25 MG TAB PO SCH (09:22)
[2022-08-29] MEDS: Sertraline 100 MG TAB PO SCH (09:22)
[2022-08-29] MEDS: Ergocalciferol 1.25 MG(50,000 UNITS) CAP PO SCH (09:22)
[2022-08-29] MEDS: Multivit, Therapeutic 1 TAB PO SCH (09:22)
[2022-08-29] MEDS: Loratadine 10 MG TAB PO SCH (09:22)
[2022-08-29] MEDS ORDERED: Aspirin Chewable 81 MG TAB ONE (09:30)
[2022-08-29] MEDS: Levothyroxine Sodium 50 MCG TAB PO SCH (10:50)
[2022-08-29] MEDS: Oxacillin 2 GM in Sodium Chloride 0.9% 100 ML IVPB SCH ×3 (12:08→20:20)
[2022-08-29] MEDS ORDERED: Torsemide 10 MG TAB PO SCH (15:45)
[2022-08-29] MEDS: HumaLOG 300 UNITS/3 ML VIAL SC PRN (16:53)
[2022-08-29] MEDS: Melatonin 3 MG TAB PO SCH (20:19)
[2022-08-29] MEDS: Atorvastatin Calcium 40 MG TAB PO SCH (20:20)
[2022-08-29] MEDS ORDERED: metFORMIN 500 MG TAB PO SCH (21:00)
[2022-08-30] MEDS: Oxacillin 2 GM in Sodium Chloride 0.9% 100 ML IVPB SCH ×7 (00:08→23:56)
[2022-08-30] MEDS: Levothyroxine Sodium 50 MCG TAB PO SCH (05:00)
[2022-08-30 05:19] LABS: #Basophils 0.1 thou/uL (0.0-0.2); #Lymphocytes 1.6 thou/uL (1.20-3.40); #Monocytes 0.5 thou/uL (0.11-0.59); #Neutrophils 4.6 thou/uL (1.40-6.50); %Eosinophils 12.6 % (0.0-10.0); %Lymphocytes 20.5 % (21.0-51.0); %Monocytes 6.8 % (0.0-10.0); %Neutrophils 59.1 % (42.0-75.0); Mean Corpuscular HGB CONC 31.8 g/dL (32.0-36.0); Mean Corpuscular Hemoglobin 30.9 pg (27.0-31.0); Mean Corpuscular Volume 97.2 fl (78.0-98.0); Platelet Count 173 10x3/uL (130-400); Red Blood Cell (RBC) Count 2.93 mill/uL (4.20-5.40); White Blood Cell (WBC) Count 7.8 10x3/uL (4.8-10.8)
[2022-08-30 05:20] LABS: ALT (SGPT) Less than 7 U/L (8-55); AST (SGOT) 27 U/L (5-34); Albumin 2.5 g/dL (3.4-4.8); Alkaline Phosphatase 197 U/L (40-110); Anion Gap 12 mmol/L (10-20); BUN (Urea Nitrogen) 15 mg/dL (9.8-20.1); Bilirubin, Total 0.5 mg/dL (0.2-1.2); Calc. Creatinine Clearance 37 mL/min (70-130); Calcium 8.4 mg/dL (7.8-10.44); Carbon Dioxide 31 mmol/L (23-31); Chloride 100 mmol/L (98-107); Estimated GFR 55; Globulin 3.5 g/dL (2.4-3.5); Glucose 156 mg/dL (83-110); Potassium 3.5 mmol/L (3.5-5.1); Sodium 139 mmol/L (136-145)
[2022-08-30] MEDS: Losartan 25 MG TAB PO SCH (09:11)
[2022-08-30] MEDS: Aspirin Chewable 81 MG TAB PO SCH (09:11)
[2022-08-30] MEDS: Ergocalciferol 1.25 MG(50,000 UNITS) CAP PO SCH (09:11)
[2022-08-30] MEDS: Sertraline 100 MG TAB PO SCH (09:12)
[2022-08-30] MEDS: Loratadine 10 MG TAB PO SCH (09:12)
[2022-08-30] MEDS: Multivit, Therapeutic 1 TAB PO SCH (09:12)
[2022-08-30] MEDS: Amiodarone 200 MG TAB PO SCH (09:12)
[2022-08-30] MEDS: Torsemide 10 MG TAB PO SCH (09:12)
[2022-08-30] MEDS: Empagliflozin 10 MG TAB PO SCH (09:12)
[2022-08-30] MEDS: Potassium Chloride 20 MEQ TAB PO SCH (09:12)
[2022-08-30 10:37] VITALS: BMI 20.2
[2022-08-30] MEDS: HumaLOG 300 UNITS/3 ML VIAL SC PRN (12:33)
[2022-08-30] MEDS: Melatonin 3 MG TAB PO SCH (20:39)
[2022-08-30] MEDS: Atorvastatin Calcium 40 MG TAB PO SCH (20:39)
[2022-08-31] MEDS: Oxacillin 2 GM in Sodium Chloride 0.9% 100 ML IVPB SCH ×3 (04:57→11:07)
[2022-08-31] MEDS: Levothyroxine Sodium 50 MCG TAB PO SCH (05:10)
[2022-08-31 05:21] LABS: #Basophils 0.1 thou/uL (0.0-0.2); #Eosinphils 0.7 thou/uL (0.0-0.7); #Lymphocytes 1.3 thou/uL (1.20-3.40); #Monocytes 0.6 thou/uL (0.11-0.59); %Basophils 1.1 % (0.0-1.0); %Eosinophils 7.9 % (0.0-10.0); %Lymphocytes 14.9 % (21.0-51.0); %Monocytes 7.2 % (0.0-10.0); Hemoglobin 9.6 g/dL (12.0-16.0); Mean Corpuscular HGB CONC 31.2 g/dL (32.0-36.0); Mean Corpuscular Hemoglobin 30.2 pg (27.0-31.0); Mean Corpuscular Volume 96.9 fl (78.0-98.0); Platelet Count 197 10x3/uL (130-400); RBC Distribution Width 18.9 % (11.5-14.5); Red Blood Cell (RBC) Count 3.19 mill/uL (4.20-5.40); White Blood Cell (WBC) Count 8.7 10x3/uL (4.8-10.8)
[2022-08-31 05:48] LABS: ALT (SGPT) Less than 7 U/L (8-55); AST (SGOT) 30 U/L (5-34); Albumin 2.6 g/dL (3.4-4.8); Alkaline Phosphatase 174 U/L (40-110); Anion Gap 12 mmol/L (10-20); BUN (Urea Nitrogen) 17 mg/dL (9.8-20.1); Bilirubin, Total 0.5 mg/dL (0.2-1.2); Calc. Creatinine Clearance 32 mL/min (70-130); Calcium 8.3 mg/dL (7.8-10.44); Carbon Dioxide 28 mmol/L (23-31); Chloride 101 mmol/L (98-107); Estimated GFR 47; Globulin 3.6 g/dL (2.4-3.5); Glucose 211 mg/dL (83-110); Potassium 3.5 mmol/L (3.5-5.1); Protein, Total 6.2 g/dL (5.8-8.1); Sodium 137 mmol/L (136-145)
[2022-08-31] MEDS: HumaLOG 300 UNITS/3 ML VIAL SC PRN (05:54)
[2022-08-31 08:50] VITALS: TEMP 98.2
[2022-08-31] MEDS: Ergocalciferol 1.25 MG(50,000 UNITS) CAP PO SCH (09:24)
[2022-08-31] MEDS: Amiodarone 200 MG TAB PO SCH (09:24)
[2022-08-31] MEDS: Multivit, Therapeutic 1 TAB PO SCH (09:25)
[2022-08-31] MEDS: Losartan 25 MG TAB PO SCH (09:25)
[2022-08-31] MEDS: Empagliflozin 10 MG TAB PO SCH (09:25)
[2022-08-31] MEDS: Aspirin Chewable 81 MG TAB PO SCH (09:25)
[2022-08-31] MEDS: Torsemide 10 MG TAB PO SCH (09:25)
[2022-08-31] MEDS: Loratadine 10 MG TAB PO SCH (09:25)
[2022-08-31] MEDS: Sertraline 100 MG TAB PO SCH (09:25)
[2022-08-31] MEDS: Potassium Chloride 20 MEQ TAB PO SCH (09:25)
[2022-08-31 12:25] VITALS: BP 126/60
== END 2022-08-31 15:36 | DRG 291 ==
LOC: ERS 15:58 → INTOOBSV 18:47 → ERHOLD 18:47 → 2SW 08-29 10:39 → OBSVTOIN 08-30 08:49
PROVIDERS: ADMIT Student in an Organized Health Care Education/Training Program; ATTEND Student in an Organized Health Care Education/Training Program
DX: I13.0 Hypertensive heart and chronic kidney disease with heart failure and stage 1 through stage 4 chronic kidney disease, or unspecified chronic kidney disease (principal); I50.43 Acute on chronic combined systolic (congestive) and diastolic (congestive) heart failure; I24.8 Other forms of acute ischemic heart disease; I48.91 Unspecified atrial fibrillation; E03.9 Hypothyroidism, unspecified; E11.22 Type 2 diabetes mellitus with diabetic chronic kidney disease; N18.31 Chronic kidney disease, stage 3a; E78.5 Hyperlipidemia, unspecified; F41.9 Anxiety disorder, unspecified; F32.A Depression, unspecified; L89.621 Pressure ulcer of left heel, stage 1; L89.611 Pressure ulcer of right heel, stage 1; I25.10 Atherosclerotic heart disease of native coronary artery without angina pectoris; I05.9 Rheumatic mitral valve disease, unspecified; E11.649 Type 2 diabetes mellitus with hypoglycemia without coma; Z79.899 Other long term (current) drug therapy; Z82.49 Family history of ischemic heart disease and other diseases of the circulatory system; Z79.84 Long term (current) use of oral hypoglycemic drugs; Z98.890 Other specified postprocedural states; Z79.4 Long term (current) use of insulin; Z79.82 Long term (current) use of aspirin; Z20.822 Contact with and (suspected) exposure to COVID-19
CPT/HCPCS: 36415; 36416; 71045; 80053; 81003; 82553; 83605; 83735; 83880; 84100; 84145; 84484; 85025; 85652; 86140; 87040; 93005; 93306; 94760; 96372; 96374; 96375; 96376; 97139; G0378; J0692; J1650; J1815; J1940; J2700; J3370-JW; J3475; J3490; J7999; U0002

== ENCOUNTER 2022-09-30 16:53 | Inpatient (IN) | payer MEDICARE, MEDICAID ==
[2022-09-30 17:49] LABS: Mean Corpuscular HGB CONC 31.9 g/dL (32.0-36.0); Mean Corpuscular Hemoglobin 33.3 pg (27.0-31.0); Mean Platelet Volume 12.7 fL (7.4-10.4); Platelet Count 201 10x3/uL (130-400); Red Blood Cell (RBC) Count 3.89 mill/uL (4.20-5.40)
[2022-09-30 18:09] LABS: ALT (SGPT) 32 U/L (8-55); AST (SGOT) 87 U/L (5-34); Albumin 2.6 g/dL (3.4-4.8); Alkaline Phosphatase 145 U/L (40-110); Anion Gap 20 mmol/L (10-20); BUN (Urea Nitrogen) 21 mg/dL (9.8-20.1); Bilirubin, Total 0.5 mg/dL (0.2-1.2); Calc. Creatinine Clearance 0 mL/min (70-130); Calcium 9.1 mg/dL (7.8-10.44); Carbon Dioxide 24 mmol/L (23-31); Chloride 101 mmol/L (98-107); Estimated GFR 43; Globulin 4.6 g/dL (2.4-3.5); Glucose 378 mg/dL (83-110); Potassium 3.8 mmol/L (3.5-5.1); Protein, Total 7.2 g/dL (5.8-8.1); Sodium 141 mmol/L (136-145)
[2022-09-30 18:17] LABS: Burr Cells SLIGHT = 2-5 cells (100X) (0-1/hpf); Eosinophils 29 % (0-10); Large Platelets SLIGHT; Lymphocytes 18 % (21-51); MDiff Complete? YES; Macrocytosis SLIGHT = 6-15 cells (100X) (0-5/hpf); Monocytes 4 % (0-10); Myelocyte 2 % (0-0); Neutrophil 43 % (42-75); Ovalocytes SLIGHT = 2-5 cells (100X) (0-1/hpf); Platelet Morphology Comment Appears Adequate; Polychromasia SLIGHT = 2-3 cells (100X) (0-2/hpf); Reactive Lymphocytes 1 % (0-10)
[2022-09-30] MEDS ORDERED: Furosemide 40 MG/4 ML VIAL ONE (20:00)
[2022-09-30 21:58] LABS: Troponin I 0.037 ng/mL (< 0.028)
[2022-10-01] MEDS ORDERED: HumaLOG 300 UNITS/3 ML VIAL SC PRN ×2 (00:23→11:29)
[2022-10-01] MEDS ORDERED: Dextrose 5% in Water 1,000 ML IV PRN (00:23)
[2022-10-01] MEDS ORDERED: Dextrose 50% Abboject 50 ML SYRINGE SLOW IVP PRN (00:23)
[2022-10-01] MEDS ORDERED: Docusate 100 MG CAP PO PRN (01:38)
[2022-10-01] MEDS ORDERED: Ipratropium/Albuterol 3 ML NEB NEB PRN (01:38)
[2022-10-01 05:55] LABS: SARS-CoV-2 NAA Rapid Test Not Detected (NotDetected)
[2022-10-01] MEDS ORDERED: Furosemide 40 MG/4 ML VIAL ONE (06:05)
[2022-10-01] MEDS: Furosemide 40 MG/4 ML VIAL SLOW IVP SCH ×2 (06:15→16:53)
[2022-10-01] MEDS: Levothyroxine Sodium 50 MCG TAB PO SCH (06:16)
[2022-10-01 07:33] LABS: Mean Corpuscular HGB CONC 30.8 g/dL (32.0-36.0); Mean Corpuscular Hemoglobin 32.2 pg (27.0-31.0); Mean Platelet Volume 12.6 fL (7.4-10.4); Platelet Count 193 10x3/uL (130-400); Red Blood Cell (RBC) Count 4.05 mill/uL (4.20-5.40); White Blood Cell (WBC) Count 16.9 10x3/uL (4.8-10.8)
[2022-10-01 07:34] LABS: Anion Gap 19 mmol/L (10-20); BUN (Urea Nitrogen) 17 mg/dL (9.8-20.1); Calc. Creatinine Clearance 0 mL/min (70-130); Calcium 9.3 mg/dL (7.8-10.44); Carbon Dioxide 20 mmol/L (23-31); Chloride 104 mmol/L (98-107); Estimated GFR 51; Glucose 283 mg/dL (83-110); Potassium 3.4 mmol/L (3.5-5.1); Sodium 140 mmol/L (136-145)
[2022-10-01 07:59] LABS: Anisocytosis SLIGHT = 6-15 cells (100X) (0-5/hpf); Band 1 % (5-11); Eosinophils 37 % (0-10); Helmet Cells SLIGHT = 2-5 cells (100X) (0-1/hpf); Hypochromia SLIGHT = 6-15 cells (100X) (0-5/hpf); Large Platelets SLIGHT; Lymphocytes 4 % (21-51); MDiff Complete? YES; Macrocytosis SLIGHT = 6-15 cells (100X) (0-5/hpf); Monocytes 7 % (0-10); Neutrophil 42 % (42-75); Platelet Morphology Comment Appears Adequate; Polychromasia SLIGHT = 2-3 cells (100X) (0-2/hpf); Reactive Lymphocytes 9 % (0-10); Schistocytes SLIGHT = 2-5 cells (100X) (0-1/hpf); Target Cells SLIGHT = 2-5 cells (100X) (0-1/hpf); Tear Drops SLIGHT = 2-5 cells (100X) (0-1/hpf)
[2022-10-01] MEDS ORDERED: Multivitamin W/ Minerals 1 TAB ONE (08:59)
[2022-10-01] MEDS ORDERED: Aspirin Chewable 81 MG TAB ONE (08:59)
[2022-10-01] MEDS ORDERED: HumaLOG 300 UNITS/3 ML VIAL ONE (08:59)
[2022-10-01] MEDS ORDERED: Potassium Chloride 20 MEQ TAB ONE (08:59)
[2022-10-01] MEDS: Sertraline 100 MG TAB PO SCH (09:00)
[2022-10-01] MEDS: Amiodarone 200 MG TAB PO SCH (09:00)
[2022-10-01] MEDS: Loratadine 10 MG TAB PO SCH (09:00)
[2022-10-01] MEDS: Potassium Chloride 20 MEQ TAB PO SCH (09:00)
[2022-10-01] MEDS: Multivitamin W/ Minerals 1 TAB PO SCH (09:00)
[2022-10-01] MEDS: Empagliflozin 25 MG TAB PO SCH (09:00)
[2022-10-01] MEDS: Aspirin Chewable 81 MG TAB PO SCH (09:00)
[2022-10-01] MEDS ORDERED: Ergocalciferol 1.25 MG(50,000 UNITS) CAP PO SCH (09:00)
[2022-10-01] MEDS: Losartan 25 MG TAB PO SCH (09:00)
[2022-10-01] MEDS ORDERED: Potassium Chloride 20 MEQ TAB PO SCH (11:15)
[2022-10-01 14:48] VITALS: BMI 20.9
[2022-10-01] MEDS: Melatonin 3 MG TAB PO SCH (20:10)
[2022-10-01] MEDS: Atorvastatin Calcium 40 MG TAB PO SCH (20:11)
[2022-10-01] MEDS: HumaLOG 300 UNITS/3 ML VIAL SC PRN (23:08)
[2022-10-02 05:02] LABS: #Basophils 0.2 thou/uL (0.0-0.2); #Eosinphils 3.1 thou/uL (0.0-0.7); #Lymphocytes 2.6 thou/uL (1.20-3.40); #Monocytes 0.7 thou/uL (0.11-0.59); #Neutrophils 5.8 thou/uL (1.40-6.50); %Basophils 1.4 % (0.0-1.0); %Eosinophils 24.8 % (0.0-10.0); %Lymphocytes 21.2 % (21.0-51.0); %Monocytes 5.8 % (0.0-10.0); %Neutrophils 46.8 % (42.0-75.0); Hemoglobin 11.4 g/dL (12.0-16.0); Mean Corpuscular HGB CONC 31.8 g/dL (32.0-36.0); Mean Platelet Volume 12.7 fL (7.4-10.4); Platelet Count 185 10x3/uL (130-400); RBC Distribution Width 17.6 % (11.5-14.5); Red Blood Cell (RBC) Count 3.46 mill/uL (4.20-5.40); White Blood Cell (WBC) Count 12.4 10x3/uL (4.8-10.8)
[2022-10-02 05:31] LABS: ALT (SGPT) 28 U/L (8-55); AST (SGOT) 75 U/L (5-34); Albumin 2.3 g/dL (3.4-4.8); Alkaline Phosphatase 114 U/L (40-110); Anion Gap 16 mmol/L (10-20); BUN (Urea Nitrogen) 23 mg/dL (9.8-20.1); Bilirubin, Total 0.4 mg/dL (0.2-1.2); Calc. Creatinine Clearance 33 mL/min (70-130); Calcium 9.3 mg/dL (7.8-10.44); Carbon Dioxide 29 mmol/L (23-31); Chloride 102 mmol/L (98-107); Estimated GFR 49; Globulin 4.2 g/dL (2.4-3.5); Glucose 235 mg/dL (83-110); Potassium 3.4 mmol/L (3.5-5.1); Protein, Total 6.5 g/dL (5.8-8.1); Sodium 144 mmol/L (136-145)
[2022-10-02] MEDS: Levothyroxine Sodium 50 MCG TAB PO SCH (05:43)
[2022-10-02] MEDS: Furosemide 40 MG/4 ML VIAL SLOW IVP SCH ×2 (05:43→14:48)
[2022-10-02] MEDS: Amiodarone 200 MG TAB PO SCH (08:59)
[2022-10-02] MEDS: Losartan 25 MG TAB PO SCH (09:00)
[2022-10-02] MEDS: Potassium Chloride 20 MEQ TAB PO SCH (09:01)
[2022-10-02] MEDS: Sertraline 100 MG TAB PO SCH (09:01)
[2022-10-02] MEDS: Loratadine 10 MG TAB PO SCH (09:01)
[2022-10-02] MEDS: Multivitamin W/ Minerals 1 TAB PO SCH (09:01)
[2022-10-02] MEDS: Aspirin Chewable 81 MG TAB PO SCH (09:01)
[2022-10-02] MEDS: Empagliflozin 25 MG TAB PO SCH (09:02)
[2022-10-02] MEDS ORDERED: Potassium Chloride 20 MEQ TAB PO SCH (10:15)
[2022-10-02] MEDS: HumaLOG 300 UNITS/3 ML VIAL SC SCH ×2 (12:03→17:55)
[2022-10-02] MEDS: Melatonin 3 MG TAB PO SCH (21:23)
[2022-10-02] MEDS: HumaLOG 300 UNITS/3 ML VIAL SC PRN (21:24)
[2022-10-02] MEDS: Atorvastatin Calcium 40 MG TAB PO SCH (21:24)
[2022-10-03 04:27] LABS: ALT (SGPT) 28 U/L (8-55); AST (SGOT) 68 U/L (5-34); Albumin 2.3 g/dL (3.4-4.8); Alkaline Phosphatase 120 U/L (40-110); Anion Gap 17 mmol/L (10-20); BUN (Urea Nitrogen) 21 mg/dL (9.8-20.1); Bilirubin, Total 0.4 mg/dL (0.2-1.2); Calc. Creatinine Clearance 36 mL/min (70-130); Calcium 9.2 mg/dL (7.8-10.44); Carbon Dioxide 26 mmol/L (23-31); Chloride 99 mmol/L (98-107); Estimated GFR 54; Globulin 4.1 g/dL (2.4-3.5); Glucose 210 mg/dL (83-110); Potassium 3.9 mmol/L (3.5-5.1); Protein, Total 6.4 g/dL (5.8-8.1); Sodium 138 mmol/L (136-145)
[2022-10-03] MEDS: Furosemide 40 MG/4 ML VIAL SLOW IVP SCH (05:44)
[2022-10-03] MEDS: Levothyroxine Sodium 50 MCG TAB PO SCH (05:44)
[2022-10-03 08:29] LABS: Hemoglobin A1c 8.7 % (4.0-6.0)
[2022-10-03] MEDS: HumaLOG 300 UNITS/3 ML VIAL SC SCH ×3 (09:54→17:44)
[2022-10-03] MEDS: Losartan 25 MG TAB PO SCH (09:55)
[2022-10-03] MEDS: Multivitamin W/ Minerals 1 TAB PO SCH (09:55)
[2022-10-03] MEDS: Potassium Chloride 20 MEQ TAB PO SCH (09:55)
[2022-10-03] MEDS: Aspirin Chewable 81 MG TAB PO SCH (09:55)
[2022-10-03] MEDS: Amiodarone 200 MG TAB PO SCH (09:56)
[2022-10-03] MEDS: Loratadine 10 MG TAB PO SCH (09:56)
[2022-10-03] MEDS: Sertraline 100 MG TAB PO SCH (09:56)
[2022-10-03] MEDS: Empagliflozin 25 MG TAB PO SCH (09:56)
[2022-10-03] MEDS ORDERED: Insulin Glargine 30 UNITS/0.3 ML VIAL SC SCH (10:15)
[2022-10-03 11:39] VITALS: TEMP 97.5
[2022-10-03 17:01] VITALS: BP 97/53
[2022-10-04] MEDS ORDERED: Insulin Glargine 30 UNITS/0.3 ML VIAL SC SCH (09:00)
== END 2022-10-03 18:00 | DRG 291 ==
LOC: ERS 16:53 → ERHOLD 20:54 → 2NO 10-01 14:02 → OBSVTOIN 10-02 11:48
PROVIDERS: ADMIT Student in an Organized Health Care Education/Training Program; ATTEND Student in an Organized Health Care Education/Training Program
DX: I11.0 Hypertensive heart disease with heart failure (principal); I50.33 Acute on chronic diastolic (congestive) heart failure; J96.01 Acute respiratory failure with hypoxia; N17.9 Acute kidney failure, unspecified; Z20.822 Contact with and (suspected) exposure to COVID-19; E11.9 Type 2 diabetes mellitus without complications; E87.6 Hypokalemia; R94.5 Abnormal results of liver function studies; E03.9 Hypothyroidism, unspecified; R32 Unspecified urinary incontinence; F41.9 Anxiety disorder, unspecified; F32.A Depression, unspecified; E78.5 Hyperlipidemia, unspecified; I48.0 Paroxysmal atrial fibrillation; R29.6 Repeated falls; Z91.81 History of falling; Z79.899 Other long term (current) drug therapy; Z79.82 Long term (current) use of aspirin; Z79.890 Hormone replacement therapy; Z98.890 Other specified postprocedural states; Z82.49 Family history of ischemic heart disease and other diseases of the circulatory system
CPT/HCPCS: 36415; 36416; 71045; 80048; 80053; 82553; 83036; 83880; 84484; 85025; 93005; 94760; 96372; 96374; 96376; G0378; J1650; J1815; J1940; U0002

== ENCOUNTER 2022-10-21 12:24 | Outpatient (CLI) | payer MEDICARE, MEDICAID | END 2022-10-21 12:25 | disposition home or self-care (01) | LOC: ULT 12:24 | PROVIDERS: ATTEND Internal Medicine Cardiovascular Disease | DX: I50.22 Chronic systolic (congestive) heart failure (principal); I08.3 Combined rheumatic disorders of mitral, aortic and tricuspid valves | CPT/HCPCS: 93306 ==

== ENCOUNTER 2022-10-25 17:57 | Emergency (ER) | payer MEDICARE, MEDICAID | END 2022-10-25 20:14 | disposition home or self-care (01) | LOC: ERS 17:57 | DX: S00.12XA Contusion of left eyelid and periocular area, initial encounter (principal); E78.5 Hyperlipidemia, unspecified; E11.9 Type 2 diabetes mellitus without complications; I10 Essential (primary) hypertension; E03.9 Hypothyroidism, unspecified; Z79.4 Long term (current) use of insulin; Z79.82 Long term (current) use of aspirin; Z79.84 Long term (current) use of oral hypoglycemic drugs; W19.XXXA Unspecified fall, initial encounter | CPT/HCPCS: 70450; 93005 ==

== ENCOUNTER 2023-09-13 10:54 | Emergency (ER) | payer MEDICARE, OTHER | END 2023-09-13 14:57 | disposition home or self-care (01) | LOC: ERS 10:54 | DX: S01.81XA Laceration without foreign body of other part of head, initial encounter (principal); R91.1 Solitary pulmonary nodule; E11.9 Type 2 diabetes mellitus without complications; I11.0 Hypertensive heart disease with heart failure; I50.9 Heart failure, unspecified; W18.30XA Fall on same level, unspecified, initial encounter | CPT/HCPCS: 12001; 70450; 70486; 71046; 72125 ==

== ENCOUNTER 2024-01-16 15:08 | Emergency (ER) | payer MEDICARE, OTHER ==
[2024-01-16] MEDS ORDERED: Dexamethasone 10 MG/ML VIAL ONE (16:43)
[2024-01-16] MEDS ORDERED: Doxycycline 100 MG CAP ONE (16:49)
[2024-01-16] MEDS ORDERED: Cephalexin 250 MG CAP ONE (16:49)
== END 2024-01-16 17:15 | disposition home or self-care (01) ==
LOC: ERS 15:08
DX: S92.511A Displaced fracture of proximal phalanx of right lesser toe(s), initial encounter for closed fracture (principal); L03.031 Cellulitis of right toe; I10 Essential (primary) hypertension; E11.9 Type 2 diabetes mellitus without complications; Z79.4 Long term (current) use of insulin; X58.XXXA Exposure to other specified factors, initial encounter
CPT/HCPCS: J1100

== ENCOUNTER 2024-02-17 15:47 | Inpatient (IN) | payer MEDICARE, MEDICAID ==
[2024-02-17 16:36] LABS: #Basophils 0.05 10x3/uL (0.0-0.2); %Basophils 0.6 % (0.0-1.0); %Eosinophils 0.7 % (0.0-10.0); %Lymphocytes 12.1 % (21.0-51.0); %Monocytes 9.3 % (0.0-10.0); %Neutrophils 76.9 % (42.0-75.0); Hematocrit 36.5 % (36.0-47.0); Hemoglobin 11.3 g/dL (12.0-16.0); Mean Corpuscular Hemoglobin 27.8 pg (27.0-31.0); Mean Corpuscular Volume 89.7 fL (78.0-98.0); Mean Platelet Volume 11.7 fL (7.4-10.4); Platelet Count 204 10x3/uL (130-400); Red Blood Cell (RBC) Count 4.07 mill/uL (4.20-5.40)
[2024-02-17] MEDS ORDERED: LevoFLOXacin 750 mg/D5W 150 ml Premix Bag ONE (16:37)
[2024-02-17 16:53] LABS: ALT (SGPT) 21 U/L (8-55); AST (SGOT) 30 U/L (5-34); Albumin 3.2 g/dL (3.4-4.8); Alkaline Phosphatase 108 U/L (40-110); Anion Gap 14 mmol/L (10-20); BUN (Urea Nitrogen) 16 mg/dL (9.8-20.1); Bilirubin, Total 0.4 mg/dL (0.2-1.2); Calc. Creatinine Clearance 0 mL/min (70-130); Calcium 8.5 mg/dL (7.8-10.44); Carbon Dioxide 19 mmol/L (23-31); Chloride 110 mmol/L (98-107); Estimated GFR 53; Globulin 3.6 g/dL (2.4-3.5); Glucose 257 mg/dL (83-110); Potassium 3.8 mmol/L (3.5-5.1); Protein, Total 6.8 g/dL (5.8-8.1); Sodium 139 mmol/L (136-145)
[2024-02-17 20:41] LABS: Troponin I 0.182 ng/mL (< 0.028)
[2024-02-17 21:35] VITALS: BMI 20.9
[2024-02-17] MEDS ORDERED: Ondansetron ODT 4 MG TAB PO PRN (21:40)
[2024-02-17] MEDS ORDERED: Acetaminophen 650 MG Suppository PR PRN (21:40)
[2024-02-17] MEDS ORDERED: Ondansetron PF 4 MG/2 ML Vial IVP PRN (21:40)
[2024-02-17] MEDS ORDERED: Senokot S 8.6-50 MG TAB PO PRN (21:44)
[2024-02-17] MEDS ORDERED: Ipratropium/Albuterol 3 ML NEB NEB PRN (21:44)
[2024-02-17] MEDS ORDERED: Glucagon 1 MG/ML KIT IM PRN (21:45)
[2024-02-17] MEDS ORDERED: Dextrose 5% in Water 1,000 ML IV PRN (21:45)
[2024-02-17] MEDS ORDERED: Dextrose 50% Abboject 50 ML SYRINGE SLOW IVP PRN (21:45)
[2024-02-17 21:57] LABS: Influenza A by NAA Not Detected (NotDetected); Influenza B by NAA Not Detected (NotDetected); SARS-CoV-2 NAA Rapid Test Not Detected (NotDetected)
[2024-02-17 23:34] LABS: Troponin I 0.151 ng/mL (< 0.028)
[2024-02-18 04:30] LABS: #Basophils 0.03 10x3/uL (0.0-0.2); %Basophils 0.4 % (0.0-1.0); %Eosinophils 1.9 % (0.0-10.0); %Neutrophils 71.1 % (42.0-75.0); Hematocrit 34.6 % (36.0-47.0); Hemoglobin 10.6 g/dL (12.0-16.0); Mean Corpuscular HGB CONC 30.6 g/dL (32.0-36.0); Mean Corpuscular Hemoglobin 27.4 pg (27.0-31.0); Mean Corpuscular Volume 89.4 fL (78.0-98.0); Mean Platelet Volume 12.2 fL (7.4-10.4); Platelet Count 210 10x3/uL (130-400); RBC Distribution Width 17.9 % (11.5-14.5); Red Blood Cell (RBC) Count 3.87 mill/uL (4.20-5.40)
[2024-02-18 05:09] LABS: Anion Gap 14 mmol/L (10-20); BUN (Urea Nitrogen) 14 mg/dL (9.8-20.1); Calc. Creatinine Clearance 39 mL/min (70-130); Calcium 8.4 mg/dL (7.8-10.44); Carbon Dioxide 22 mmol/L (23-31); Chloride 111 mmol/L (98-107); Estimated GFR 61; Glucose 79 mg/dL (83-110); Potassium 3.9 mmol/L (3.5-5.1); Sodium 143 mmol/L (136-145)
[2024-02-18 05:15] LABS: Troponin I 0.146 ng/mL (< 0.028)
[2024-02-18] MEDS: Levothyroxine Sodium 50 MCG TAB PO SCH (05:41)
[2024-02-18] MEDS: Furosemide 40 MG (4 mL) VIAL SLOW IVP SCH (05:42)
[2024-02-18] MEDS: Sertraline 100 MG TAB PO SCH (08:47)
[2024-02-18] MEDS: Famotidine 20 MG TAB PO SCH (08:47)
[2024-02-18] MEDS: Empagliflozin 25 MG TAB PO SCH (08:48)
[2024-02-18] MEDS: Famotidine/PF 20 mg/2ml Vial SLOW IVP SCH (08:48)
[2024-02-18] MEDS: Insulin Lispro 100 UNIT/ML 10 ML VIAL SC PRN (11:21)
[2024-02-19] MEDS: Amiodarone 200 MG TAB PO SCH (10:02)
[2024-02-19 12:16] VITALS: BMI 19.6
[2024-02-19] MEDS: Furosemide 40 MG (4 mL) VIAL SLOW IVP SCH (13:18)
[2024-02-20 05:07] LABS: Anion Gap 17 mmol/L (10-20); BUN (Urea Nitrogen) 36 mg/dL (9.8-20.1); Calc. Creatinine Clearance 23 mL/min (70-130); Calcium 8.9 mg/dL (7.8-10.44); Carbon Dioxide 27 mmol/L (23-31); Chloride 98 mmol/L (98-107); Estimated GFR 34; Glucose 201 mg/dL (83-110); Potassium 3.4 mmol/L (3.5-5.1); Sodium 139 mmol/L (136-145)
[2024-02-20] MEDS: Potassium Chloride 20 MEQ TAB PO SCH (11:21)
[2024-02-20] MEDS: Acetaminophen 325 MG TAB PO PRN (15:50)
[2024-02-20] MEDS: Insulin Lispro 100 UNIT/ML 10 ML VIAL SC PRN (20:52)
[2024-02-21 04:45] LABS: Anion Gap 17 mmol/L (10-20); BUN (Urea Nitrogen) 35 mg/dL (9.8-20.1); Calc. Creatinine Clearance 25 mL/min (70-130); Calcium 9.1 mg/dL (7.8-10.44); Carbon Dioxide 23 mmol/L (23-31); Chloride 102 mmol/L (98-107); Estimated GFR 40; Glucose 201 mg/dL (83-110); Potassium 4.1 mmol/L (3.5-5.1); Sodium 138 mmol/L (136-145)
[2024-02-21] MEDS: Famotidine/PF 20 mg/2ml Vial SLOW IVP SCH (09:05)
[2024-02-21] MEDS: Famotidine 20 MG TAB PO SCH (09:08)
[2024-02-21 15:04] VITALS: BP 131/61; TEMP 97.5
== END 2024-02-21 16:55 | DRG 291 ==
LOC: ERS 15:47 → 2NO 19:58 → OBSVTOIN 02-20 08:04
PROVIDERS: ADMIT Student in an Organized Health Care Education/Training Program; ATTEND Internal Medicine
DX: I11.0 Hypertensive heart disease with heart failure (principal); I50.23 Acute on chronic systolic (congestive) heart failure; N17.9 Acute kidney failure, unspecified; Z66 Do not resuscitate; E11.9 Type 2 diabetes mellitus without complications; E03.9 Hypothyroidism, unspecified; I48.91 Unspecified atrial fibrillation; E78.5 Hyperlipidemia, unspecified; F32.A Depression, unspecified; F41.9 Anxiety disorder, unspecified; Z79.84 Long term (current) use of oral hypoglycemic drugs; Z79.4 Long term (current) use of insulin; Z79.899 Other long term (current) drug therapy; Z82.49 Family history of ischemic heart disease and other diseases of the circulatory system
CPT/HCPCS: 36415; 36416; 71045; 80048; 80053; 83605; 83880; 84145; 84484; 85025; 87040; 93005; 93306; 96375; 96376; G0378; J1815; J1940; J1956